=== PATIENT | female | born 1955 | race Caucasian/White ===

== ENCOUNTER 2016-03-23 16:56 | Emergency (ER) | payer OTHER ==
[~2016-03-23] VITALS: Ht 160 cm; Wt 67.0 kg
[~2016-03-23 16:56] MED LIST: ACET500T98 PO; ALBU18HF INHALATION; ALBU8.5H3 INH; AMO500 PO; AZIT250T94 PO; BEN50 PO; BENA40TA54 PO; BENZ100C70 PO; CAPT50TA3 PO; CYCL-319 PO; DOCU-144 PO; FAMO-18 PO; FLUT9.9S NASAL; HYDR-3498 PO; HYDR473S47 PO; IBUP200C PO; LORA-186 PO; METF500T4 PO; PRED20TA PO; UDROBDM PO
[2016-03-23 17:00] VITALS: Ht 160 cm; Wt 67.0 kg
[2016-03-23] MEDS ORDERED: ACET325T33 PO (17:46)
[2016-03-23] MEDS ORDERED: GUAI120S26 PO (17:50)
[2016-03-23] MEDS ORDERED: AMOX1TAB10 PO (17:50)
--- NOTE | 2016-03-23 17:59 | ERD ---
ER Documentation Chief Complaint Date/Time DATE: 03/23/16 TIME: 17:53 Chief Complaint FLU LIKE SYMPTOMS X 8 DAYS VOMITING, NASAL CONGESTION BODY ACHE HPI The patient is a 60-year-old female with 1 week of sore throat and dry cough, which is worse at night. She had 3 episodes of soft stool today and 4 episodes of soft stool yesterday. She reports vomiting a scant amount of liquid today 3 times and twice yesterday. This is associated with coughing a lot. She also reports headache and sinus pain for the last several days. She has some decreased appetite, but is getting plenty of fluids. She denies chest pain, difficulty breathing, shortness of breath, hemoptysis, hematemesis, body aches, lethargy, fever, chills, dysuria, flank pain, leg pain or swelling, recent surgery, or any other symptoms or concerns at this time. ROS All systems reviewed and are negative except as per history of present illness. Medications Home Meds Active Scripts Amoxicillin/Potassium Clav (Amox-Clav 875-125 mg Tablet) 875-125 mg Tab, 1 TAB PO BID for 7 Days, #14 TAB Prov:SHAHBAZ GREGG, ROTARY SLICING MACHINE OPERATOR 03/23/16 Vmypkzcdusl-H-Wnwgitocbb Hb* (Guaifenesin* DM Syrup) 120 Ml Syrup, 10 ML PO QHS Y for COUGH for 7 Days, ML Prov:SHAHBAZ GREGG, ROTARY SLICING MACHINE OPERATOR 03/23/16 Acetaminophen* (Tylenol*) 325 Mg Tablet, 2 TAB PO Q6 Y for PAIN AND OR ELEVATED TEMP, #20 TAB Prov:SHAHBAZ GREGG, ROTARY SLICING MACHINE OPERATOR 03/23/16 Benzonatate* (Tessalon Perle*) 100 Mg Capsule, 100 MG PO Q8H Y for COUGH, #20 CAP Prov:KEISHA AMADOR PA-C 01/26/16 Fluticasone Propionate (Flonase Allergy Relief) 9.9 Ml [place].susp, 1 SPRAY NASAL BID, #1 BOTTLE TO EACH NOSTRIL Prov:KEISHA AMADOR PA-C 01/26/16 Loratadine* (Claritin*) 10 Mg Tablet, 10 MG PO DAILY, #20 TAB Prov:KEISHA AMADOR PA-C 01/26/16 Ibuprofen* (Ibuprofen*) 200 Mg Capsule, 200 MG PO Q6, #30 CAP 0 Refills Prov:ERICKSONJACOB FREEMAN 04/12/15 Acetaminophen (Tylenol) 500 Mg Tab, 500 MG PO Q6, #30 TAB 0 Refills Prov:JACOB ALMENDAREZ LYDIA 04/12/15 Guaifenesin-Dextromethorphan* (Robitussin* DM) 100MG/10MG/5ML Syrup, 5 ML PO Q6H Y for COUGH, #240 ML 0 Refills Prov:ERICKSONJACOB FREEMAN 04/12/15 Amoxicillin* (Amoxicillin*) 500 Mg Cap, 500 MG PO TID, #21 CAP 0 Refills Prov:ERICKSONJACOB PA-C 04/12/15 Albuterol Sulfate* (Ventolin HFA*) 18 Gm Hfa.aer.ad, 2 PUFF INHALATION Q6H, #1 INHALER 0 Refills Prov:ERICKSONJACOB PA-C 04/12/15 Metformin* (Glucophage*) 500 Mg Tab, 500 MG PO BID, #60 TAB Prov:MAGEN CARMICHAEL MD 03/25/15 Benazepril Hcl* (Lotensin*) 40 Mg Tablet, 40 MG PO DAILY, #30 TAB Prov:MAGEN CARMICHAEL MD 03/25/15 Albuterol Sulfate* (Proair HFA*) 8.5 Gm Hfa.aer.ad, 2 PUFF INH Q4H Y for WHEEZING AND SOB, #1 INHALER Prov:MAGEN CARMICHAEL MD 03/25/15 Hydrocodone/Homatropine Mbr* (Hycodan* Liq) 5 Ml Syrup, 5 ML PO Q4H Y for COUGH , #4 OZ Prov:MAGEN CARMICHAEL MD 03/25/15 Azithromycin* (Zithromax*) 250 Mg Tablet, 250 MG PO .IZABEL DIRECTED, #6 TAB TAKE 500 MG (2 TABS) THE FIRST DAY THEN 250 MG (1 TAB) DAYS 2-5 Prov:MAGEN CARMICHAEL MD 03/25/15 Cyclobenzaprine Hcl* (Cyclobenzaprine Hcl*) 10 Mg Tablet, 10 MG PO TID, #15 TAB Prov:MALINA SINGH I. ROTARY SLICING MACHINE OPERATOR 03/02/15 Famotidine* (Pepcid*) 20 Mg Tablet, 20 MG PO BID for 4 Days, TAB Prov:MALINA SINGH I. ROTARY SLICING MACHINE OPERATOR 03/02/15 Diphenhydramine Hcl* (Benadryl*) 50 Mg Cap, 50 MG PO Q6 Y for ITCHING, #5 CAP Prov:MALINA SINGH I. ROTARY SLICING MACHINE OPERATOR 03/02/15 Prednisone* (Prednisone*) 20 Mg Tab, 40 MG PO DAILY for 4 Days, TAB Prov:SINGHMALINA BARTHOLOMEW I. ROTARY SLICING MACHINE OPERATOR 03/02/15 Docusate Sodium* (Colace*) 100 Mg Capsule, 100 MG PO TID, #30 CAP Prov:SAJI WOODSTHIA 02/24/15 Hydrocodone Bit-Acetaminophen* (Rocky Comfort*) 5-325 Mg Tab, 1 TAB PO Q6 Y for PAIN, # 20 TAB Prov:PEGGYSAJIBISMARK 02/24/15 Reported Medications Metformin* (Glucophage*) 500 Mg Tab, 500 MG PO BID, #30 TAB 02/24/15 Captopril* (Captopril*) 50 Mg Tablet, 50 MG PO QAM, #60 TAB 02/24/15 Allergies Allergies: Coded Allergies: No Known Allergy (Unverified , 01/08/15) PMhx/Soc History of Surgery: Yes (left ankle, right elbow) Anesthesia Reaction: No Hx Neurological Disorder: No Hx Respiratory Disorders: No Hx Cardiac Disorders: Yes (htn, hld) Hx Psychiatric Problems: No Hx Miscellaneous Medical Probl: Yes (dm type 2) Hx Alcohol Use: No Hx Substance Use: No Hx Tobacco Use: No Physical Exam Vitals Vital Signs Date Time Temp Pulse Resp B/P Pulse Ox O2 Delivery O2 Flow Rate FiO2 03/23/16 17:00 97.9 84 18 141/75 95 Physical Exam INITIAL VITAL SIGNS: Reviewed by me, afebrile, no tachycardia, oximetry 9 5% on room air, elevated blood pressure GENERAL: Alert. Well developed and well nourished. No acute distress. Nontoxic appearing. HEAD: Head is normocephalic. Atraumatic. Right ethmoid sinus tenderness to palpation. EYES: EOMI. PERRL. No scleral icterus. No conjunctival injection. ENT: External ears, nose, and mouth normal. Tympanic membranes without erythema , bulging, or effusion. Throat is clear and without erythema or exudates. Tonsils +1 and without erythema or exudates. Nasal passages patent and without rhinorrhea. Moist mucous membranes. Patient is easily able to swallow. NECK: Supple. Full range of motion. Trachea midline. One soft, movable, tender submandibular lymph node on the left side. No meningismus. RESPIRATORY: No tachypnea. Clear to auscultation bilaterally. No wheezing, rales , or rhonchi. CV: Regular rate and rhythm. No murmurs, rubs, or gallops ABDOMEN: Soft, non-distended, non-tender. No guarding. Bowel sounds normal in all quadrants. BACK: No CVA tenderness. Full ROM. EXTREMITIES: No obvious deformity. No clubbing or cyanosis. No edema. Sensation intact to light touch. Strength 5/5. SKIN: Warm and dry. No diaphoresis. No obvious rashes or lesions. NEUROLOGIC: Alert and oriented x 3. Appropriate. Face is symmetric. Speech is normal. Moves all extremities equally. Procedures/MDM Nursing Notes Reviewed Previous Medical Records requested via [employer]. EMERGENCY DEPARTMENT COURSE / MEDICAL DECISION MAKING: The patient comes to the ED secondary to sore throat and dry cough times one week, headache and sinus pain for the past few days, 3 episodes of soft stool today and 4 episodes of soft stool yesterday, and posttussive vomiting for 2 days. Differential diagnosis upon initial evaluation includes but is not limited to: viral syndrome, URI, bronchitis, pneumonia, strep pharyngitis, asthma exacerbation, COPD exacerbation, PE, ACS, pericarditis, pleural effusion, CHF exacerbation, pulmonary edema, sepsis. Given that the patient is well-appearing, nontoxic, afebrile, denies chest pain , denies dizziness, denies lightheadedness, denies abdominal pain, denies dysuria, denies headache, denies changes in mentation, denies shortness of breath, denies difficulty breathing, denies hemoptysis, denies hematemesis, denies true nausea vomiting, does not have watery diarrhea, does not have clinical signs of dehydration, is afebrile, without tachycardia, oximetry 95% on room air, with a benign physical exam, I have low suspicion at this time for strep pharyngitis, pneumonia, asthma, COPD, PE, ACS, pericarditis, pleural effusion, CHF, pulmonary edema, sepsis, or any other serious cause of cough, sore throat, sinus headache, and soft stools. Final impression: Sinusitis, right ethmoid URI The patient is a type II diabetic controlled on orals. She states that she has good diabetic maintenance. Her fingerstick blood glucose was 163 earlier today. She reports taking her blood sugar reading to 3 times per day. She also has hypothyroid, high cholesterol, and hypertension. She reports taking her medications as prescribed. Based on patient's history of present illness and physical examination the decision was made to discharge. There is no evidence of life threatening injuries or illnesses at this time. On re-examination, patient resting in no distress, stable vital signs, reports feeling safe for discharge with outpatient follow up with PMD in 1-2 days. Patient given return precautions. She verbalized understanding and agreed to return precautions. All of her questions and concerns were addressed prior to discharge. She agrees with the plan of care. And will follow-up with her primary care doctor within the next 1-2 days. She will return here immediately for any worsening symptoms, new symptoms, changing symptoms, or concerns. Instructed her to please only take cough medicine at night right before bed. She verbalized understanding and agreed. She was instructed to get plenty of fluids and plenty of rest and she agrees to do so. She is instructed to perform good hand hygiene encumber her cough. She agrees to do so. Patient's blood pressure was elevated but appears stable without evidence of hypertensive emergency, end organ damage, chest pain or shortness of breath. The patient was counseled about the risks of undertreated hypertension and urged to pursue outpatient monitoring and therapy in 2-3 days with their primary care physician. I discussed that the elevation in her blood pressure today could be just due to her being sick, or it could be too hypertension under treatment. She stated that she will discuss her elevated blood pressure finally today with her primary care doctor. She has an appointment this week on , 03/27/09. Prescriptions Tylenol Guaifenesin DM cough syrup Augmentin Departure Diagnosis: Primary Impression: Sinusitis chronic, ethmoidal Additional Impression: URI (upper respiratory infection) URI type: unspecified viral URI Qualified Code: J06.9 - Viral upper respiratory tract infection Condition: Stable Patient Instructions: Preventing Common Respiratory Infections, Sinusitis, Abx Tx Referrals: your doctor Additional Instructions: Llame al doctor MAANA y santos leroy DONELL PARA DENTRO DE 1-2 HORNER.Dgale a la secretaria que nosotros le instruimos hacer esta donell.Avise o llame si santiago condicin se empeora antes de la donell. Regresa aqui si peor o no mejor. SHAHBAZ GREGG, ROTARY SLICING MACHINE OPERATOR Mar 23, 2016 17:59
== END 2016-03-23 18:00 | disposition home or self-care (01) ==
LOC: FTE 16:56 → E/R 18:00
DX: J32.2 Chronic ethmoidal sinusitis (principal); J06.9 Acute upper respiratory infection, unspecified; I10 Essential (primary) hypertension; E11.9 Type 2 diabetes mellitus without complications; Z79.84 Long term (current) use of oral hypoglycemic drugs
CPT/HCPCS: 99283

== ENCOUNTER 2016-10-01 05:19 | Inpatient (IN) | payer MEDICARE, OTHER ==
[2016-09-30 12:37] VITALS: BMI 27.5
[~2016-10-01] VITALS: Ht 152.4 cm; Wt 69.6 kg
[2016-10-01] VITALS (25 sets, daily range): BP systolic 106–165; BP diastolic 48–83; PULSE 64–88; RESP 12–29; Ht 152.4 cm; Wt 69.6 kg
[2016-10-01] MEDS ORDERED: metroNIDAZOLE 500 MG/NS (PMX) 100 ML IVPB ONE (05:30)
[2016-10-01] MEDS ORDERED: CEFAZOLIN 2 GM/50 ML (PMX) 50 ML IVPB ONE (05:30)
[2016-10-01] MEDS ORDERED: D5-NS + KCL 20 MEQ 1,000 ML IV SCH (05:30)
[2016-10-01] MEDS ORDERED: EMPA10TA PO (06:37)
[2016-10-01] MEDS ORDERED: SITA1TBM7 PO (06:37)
[2016-10-01] MEDS ORDERED: ASPI-664 PO (06:37)
[2016-10-01] MEDS ORDERED: LEVO137T3 PO (06:37)
[2016-10-01] MEDS ORDERED: GLIP-95 PO (06:37)
[2016-10-01] MEDS ORDERED: AMLO-145 PO (06:37)
[2016-10-01] MEDS ORDERED: HYDROCODONE PO (06:37)
--- NOTE | 2016-10-01 06:53 | HPN ---
Date/Time of Note Date/Time of Note DATE: 10/01/16 TIME: 06:52 Interval H&P Admission Note Pt. seen H&P reviewed: No system changes MIRTA GONSALES MD Oct 01, 2016 06:52
[2016-10-01] MEDS ORDERED: metroNIDAZOLE 500 MG/100 ML NS IVPB ONE (07:00)
[2016-10-01] MEDS ORDERED: ACETAMINOPHEN 1000 MG/100 ML IVPB ONE (07:00)
[2016-10-01] MEDS ORDERED: CEFAZOLIN 1 GM INJ ONE (07:00)
[2016-10-01] MEDS ORDERED: METHYLENE BLUE 1% 10 ML INJ ONE (07:01)
[2016-10-01] MEDS ORDERED: VASOPRESSIN 20 UNITS INJ ONE (07:01)
[2016-10-01] MEDS ORDERED: THROMBIN 5000 UNIT VIAL ONE (07:01)
[2016-10-01] MEDS ORDERED: PROPOFOL 100 ML ONE (07:25)
[2016-10-01] MEDS ORDERED: morphine SULFATE/PF (10 MG/10 ML) INJ ONE (07:25)
[2016-10-01] MEDS ORDERED: ROCURONIUM 50 MG INJ ONE (07:25)
[2016-10-01] MEDS ORDERED: SUCCINYLCHOLINE CHLORIDE 100 MG/5 ML SYG IV ONE (07:25)
[2016-10-01] MEDS ORDERED: FENTAnyl 50 MCG/ML VIAL ONE (07:26)
[2016-10-01] MEDS ORDERED: MIDAZOLAM 1 MG/ML 2 ML INJ ONE (07:26)
[2016-10-01] MEDS ORDERED: INSULIN ASPART [NOVOLOG] 3 ML PEN SC ONE (07:30)
--- NOTE | 2016-10-01 08:15 | HP ---
Date/Time of Note Date/Time of Note DATE: 10/01/16 TIME: 08:14 Assessment/Plan VTE Prophylaxis VTE Prophylaxis Intervention: SCD's Lines/Catheters IV Catheter Type (from Nrsg): Peripheral IV HPI/ROS Admit Date/Time Admit Date/Time Oct 01, 2016 at 05:19 Hx of Present Illness Alphonso Willoughby M.D. [facility] History and Physical Examination Evonne Yoon Date:Sep 24, 2016 :1955 Age: 61 Physicians: Supervisor Billposting Chef Instructor Oncologist Referring MD: Gagandeep Rivero History of the Present Illness: A 61 year old female with a gradually increasing pelvic mass. The mass is complex but predominantly solid 6 cm left side. Associated with pain 3 years but getting worse. Medical history/ROS: all other systems unremarkable. Surgical history: no significant abdominal procedures. Flu yes, 03-24-16, Pneumococcal yes, Colonoscopy: never G 4 P 3 Ab 1 Medications: 08/11/16 aspirin 81 mg tablet,delayed release 1 tablet by mouth DAILY 08/11/16 benazepril 40 mg tablet 1 tablet by mouth DAILY 08/27/16 Flagyl 250 mg tablet 1 tablet by mouth as directed 1 PO QD X 2 DAYS CARL 08/11/16 glipizide ER 5 mg tablet, extended release 24 hr 1 tablet by mouth BID 08/27/16 Golytely 236 gram-22.74 gram-6.74 gram-5.86 gram oral solution 1 mL by mouth as directed BEGIN BOWEL PREP AT 10AM 08/11/16 Janumet 50 mg-500 mg tablet 1 tablet by mouth BID 08/27/16 Levaquin 250 mg tablet 1 tablet by mouth as directed 1 PO QD X 2 DAYS CARL 08/11/16 levothyroxine 125 mcg tablet 1 tablet by mouth DAILY Allergies: No active allergies recorded Family Hx: non-contributary Social HX: non-contributary ROS: as above Physical Examination Vitals (09/24/2016): Weight 156, Height 60.25, BP 110/60, BMI 30.5. General: Alert. HEENT: Pupils are equal, round, reactive to light and accommodation. Neck: Supple with no masses of lymphadenopathy. Breast: Deferred due to recent examination and responsibility of primary care physician. Chest: Clear to auscultation Heart: Normal rhythm with no murmur. Abdomen: Non tender, no ascites nor organomeglay. Pelvic exam: no masses or cul-de-sac nodularity noted Rectal: confirmatory with pelvic exam. Neurological: Grossly intact Assessment: Pelvic mass Plan: TLH/BSO, possible LSH/BSO, possible staging, possible open. All risks and benefits of this procedure have been discussed in detail with the patient, as well as alternative treatment strategies and their implications. The patient is aware that there is some possibility of a blood transfusion and its associated risks and benefits. She wishes to proceed and gives her informed consent. Alphonso Willoughby M.D. PMH/Family/Social Social History Smoking Status: Never smoker Exam/Review of Systems Vital Signs Vitals Vital Signs Date Time Temp Pulse Resp B/P Pulse Ox O2 Delivery O2 Flow Rate FiO2 10/01/16 06:24 97.0 70 18 165/83 96 Room Air Medications Medications Current Medications Potassium Chloride/Dextrose/ Sod Cl (D5-NS + KCl 20 Meq) 1,000 ml @ 100 mls/hr Q10H IV ; Start 10/01/16 at 05:30; Stop 10/01/16 at 15:29 ALPHONSO WILLOUGHBY MD Oct 01, 2016 08:15
[2016-10-01] MEDS ORDERED: EPHEDrine SULFATE 50 MG/5 ML SYG IV PRN (10:00)
[2016-10-01] MEDS ORDERED: NALBUPHINE HCL (10 MG/1 ML) INJ IV PRN (10:00)
[2016-10-01] MEDS ORDERED: FENTAnyl 50 MCG/ML VIAL IV PRN ×3 (10:00)
[2016-10-01] MEDS ORDERED: LABETALOL HCL 20MG INJ IV PRN (10:00)
[2016-10-01] MEDS ORDERED: ONDANSETRON 4 MG INJ IV PRN ×2 (10:00)
[2016-10-01] MEDS ORDERED: DIPHENHYDRAMINE 50 MG INJ IV PRN ×2 (10:00)
[2016-10-01] MEDS ORDERED: hydrALAzine 20 MG INJ IV PRN (10:00)
[2016-10-01] MEDS ORDERED: ALBUMIN HUMAN 5% 250 ML IV PRN (10:00)
[2016-10-01] MEDS ORDERED: morphine (1 MG/ML) 10ML SYRINGE IV PRN ×3 (10:00)
[2016-10-01] MEDS ORDERED: MEPERIDINE 25 MG INJ IV PRN (10:00)
[2016-10-01] MEDS ORDERED: NALOXONE (0.4 MG/ML) INJ IV PRN (10:00)
[2016-10-01] MEDS ORDERED: KETOROLAC 30 MG INJ ONE (10:15)
[2016-10-01] MEDS ORDERED: NEOSTIGMINE 3 MG/3 ML SYRINGE ONE (10:15)
[2016-10-01] MEDS ORDERED: ONDANSETRON 4 MG INJ ONE (10:15)
[2016-10-01] MEDS ORDERED: GLYCOPYRROLATE 0.4 MG INJ ONE (10:15)
[2016-10-01] MEDS ORDERED: METOCLOPRAMIDE 10 MG INJ ONE (10:15)
[2016-10-01] MEDS ORDERED: DEXAMETHASONE 4 MG/ML 1 ML INJ ONE (10:15)
[2016-10-01] MEDS ORDERED: hydrALAzine 20 MG INJ ONE (10:20)
--- NOTE | 2016-10-01 10:48 | OPR ---
Date/Time of Note Date/Time of Note DATE: 10/01/16 TIME: 10:47 Operative Report Free Text/Dictation OPERATIVE REPORT [facility] Name: [facility]an [facility] Date: 10/01/16 Preoperative Diagnosis: 1- Left adnexal mass with pelvic pain and CA-125 of 12 2- Pelvic pain Postoperative Diagnosis: 1- Benign retroperitoneal mass; pathology pending 2- Ureteral stricture Procedures: 1- Bilateral salpingoophorectomy 2- Left ureteral dissection with repositioning 3- Excision of retroperitoneal mass; pathology pending Surgeon: Dr. Gonsales Temperature Logging Operator: Dr. Garcia Anesthesia: General Indications for Procedure The patient was a 61 year old with a left solid adnexal masses and a CA-125 well as uterine enlargement with abnormal bleeding and cervical stenosis. Hence a laparoscopy was undertaken with the intention of a BSO and possible total laparoscopic hysterectomy and bilateral salpingoophorectomy with staging if needed after considering all options with risks and benefits. Findings and Summary The patient was laparoscoped and noted to have a solid retroperitoneal mass on the left adjacent to the adnexa with a normal adnexa contralateralally and therefore required a Name: [facility] ureteral dissection and repositioning on the left due to the mass and adnexa densely adherent to the sidewall. The bilateral salpingoophorectomy was then completed uneventfully with the left ureteral dissection and repositioning, facilitating removal of the retroperitoneal mass benign on frozen section. Procedure: After being prepped and draped in the usual manner an EEA-sizer and pneumo- occluder were inserted vaginally to define anatomy and assure a pneumoperitoneum. A 5-millimeter trocar was then placed cephlad to the umbilicus without incident. Subsequently, we insufflated to 15 mm Hg and placed two 5-millimeter trocars laterally and a 12-millimeter trocar suprapubically. At this time any pelvic adhesions were lysed with sharp dissection. Subsequently we explored and noted a solid mass retroperitoneally on the left adjacent to the bladder and adnexia. Initially the right round ligament was cauterized and transected with the Gyrus biopolar Cutting Forceps and the retroperitoneal spaced opened parallel to the IP-ligament and laterally with the same devise. The ureter were identified. The ureter was bluntly mobilized. Hence, space was developed in the broad ligament and the IP ligament was transected with a Thunderbeat. Subsequently, the triple-pedicle was coagulated, desiccated and transected with a Thunderbeat and the specimen removed. At this time the sigmoid was dissected from the sidewall with sharp dissection. The left round ligament was transected with the Thunderbeat and Omni and the retroperitoneal spaced opened parallel to the IP ligament and laterally with the same devise. The ureter was identified and because of proximity to the to the the retroperitoneal mass and adnexa densely adherent to the sidewall required a specific dissection and repositioning. The ureter was bluntly dissected away from the broad ligament bilaterally with an Omni, and carefully repositioned lateral to the broad ligament and suggestion of scar tissue with adjacent adnexia. Subsequently, space was developed in the broad ligament and the IP ligament was transected with a Thunderbeat and Omni. Subsequently the triple- Name: [facility] pedicle was coagulated, desiccated and transected with a Thunderbeat and the specimen removed. Subsequently the aforementioned mass was clasped and removed from the perivessicle fat with the Thunderbeat and Omni as well as Gyrus bipolar cutting forceps and the integrity of the bladder was confirmed with Methylene blue and saline. The 12-millimeter trocar site was minimally extended to 3-4 cm midline to a minilaparotomy with sharp dissection and an electrocautery and the aforementioned mass was removed with a frozen section benign. The incision was partly closed with interrupted 0- Vicryl suture, after which the 12-millimeter trocar was reinserted. After irrigating and assuring hemostasis the 12 millimeter trocar was removed and the fascia was closed with 0 -vicryl using an endo-close devise. The gas was removed and the skin of all sites then closed with 6-0 plain gut suture or Monocryl suture. The EBL was 75 cc and the patient tolerated the procedure well and left the OR in good condition. Mirta Gonsales M.D. MIRTA GONSALES MD Oct 01, 2016 10:48
[2016-10-01] MEDS ORDERED: PHENYLephrine (100 MCG/ML) 5ML SYG ONE (10:50)
[2016-10-01] MEDS ORDERED: POTASSIUM CHLORIDE 20 MEQ in LACTATED RINGER'S 1,000 ML IV SCH (11:00)
[2016-10-01 11:24] LABS: BASOPHILS % 0.3 % (0.0-2.0); EOSINOPHILS # 0.1 10^3/ul (0.0-0.5); EOSINOPHILS % 1.6 % (0.0-7.0); HEMATOCRIT 37.9 % (37.0-47.0); HEMOGLOBIN 12.5 g/dl (12.0-16.0); LYMPHOCYTES # 3.9 10^3/ul (0.8-2.9); LYMPHOCYTES % 51.7 % (15.0-51.0); MEAN CORPUSCULAR HEMOGLOBIN 30.3 pg (29.0-33.0); MEAN PLATELET VOLUME 12.5 fl (7.4-10.4); MONOCYTE # 0.4 10^3/ul (0.3-0.9); MONOCYTES % 5.4 % (0.0-11.0); NEUTROPHILS % 40.7 % (39.0-77.0); PLATELET COUNT 105 10^3/UL (140-415); RED BLOOD COUNT 4.12 10^6/ul (4.20-5.40); RED CELL DISTRIBUTION WIDTH 13.9 % (11.5-14.5); WHITE BLOOD COUNT 7.6 10^3/ul (4.8-10.8)
[2016-10-01 11:52] LABS: CALCIUM 8.7 mg/dl (8.4-10.2); CREATININE 0.6 mg/dl (0.44-1.00); POTASSIUM 3.2 mmol/L (3.5-5.1)
[2016-10-01] MEDS: morphine 2 MG INJ IV PRN ×4 (12:09→23:52)
[2016-10-01] MEDS ORDERED: GLUCAGON 1 MG INJ IM PRN (12:30)
[2016-10-01] MEDS ORDERED: GLUCOSE GEL 15 GRAM TUBE BUCCAL PRN (12:30)
[2016-10-01] MEDS ORDERED: GLUCOSE GEL 15 GRAM TUBE PO PRN ×2 (12:30)
[2016-10-01] MEDS ORDERED: DEXTROSE 50% 50 ML SYRINGE IV PRN ×2 (12:30)
--- NOTE | 2016-10-01 12:52 | HP ---
DATE OF ADMISSION: 10/01/2016 HISTORY OF PRESENT ILLNESS: The patient is a 61-year-old female with history of diabetes, hypertension, and hypothyroidism. Patient was noted to have left solid adnexal mass. Patient also had a CEA of 12. Patient is complaining of abdominal tenderness. She also had uterine enlargement with abnormal bleeding. Patient was evaluated by Dr. Willoughby in surgical consultation and patient was brought to the hospital and underwent a laparoscopy with excision of retroperitoneal mass, left ureteral dissection was repositional, and bilateral salpingo-oophorectomy. Postoperatively, patient experienced significant pain and patient was admitted for further evaluation and management. PAST MEDICAL HISTORY: Positive for diabetes, hypothyroidism, hypertension. FAMILY HISTORY: Noncontributory. PAST SURGICAL HISTORY: Status post surgery on patient's left ankle due to trauma, right elbow due to fall many years ago. SOCIAL HISTORY: Patient lives at home. Patient denies any tobacco, denies any illicit drug use, denies any alcohol use. ALLERGIES: NO KNOWN ALLERGIES. MEDICATIONS: Include amlodipine, aspirin, Jardiance, glipizide, levothyroxine, Janumet. REVIEW OF SYSTEMS: A 12-point review of systems is negative, unless what is mentioned in HPI. PHYSICAL EXAMINATION: GENERAL: Well-developed, well-nourished female. Currently is awake, alert, in no acute distress. VITAL SIGNS: Temperature is 98.0, pulse 66, blood pressure 106/49, respiratory rate 17, oxygen saturation 98 percent on 2 L nasal cannula. HEENT: Head is atraumatic, normocephalic. Pupils equal, round and reactive to light and accommodation. Oral mucosa is pink and moist. NECK: Supple. No cervical lymphadenopathy. No thyromegaly. CHEST: Lungs clear bilaterally. There are no rhonchi, wheezes, rales noted. CARDIAC: Normal S1, S2. No murmurs, gallops, clicks are noted. ABDOMEN: Soft, status post surgery. EXTREMITIES: No edema, clubbing, cyanosis. GENITOURINARY: Patient has a Mejia catheter with clear yellow urine. NEUROLOGIC: Patient is awake, alert and oriented x4. Moves all extremities. LABORATORY DATA: On admission, CBC: White blood cells 7.6, hemoglobin is 12.5, hematocrit 37.9, platelets 105. Chemistry: Sodium is 138, potassium 3.2, chloride 103, carbon dioxide 27, anion gap 11, BUN 11, creatinine 0.6, glucose 129, calcium 8.7. ASSESSMENT AND PLAN: 1. Left adnexal pelvic mass, status post excision, left ureteral dissection, bilateral salpingo-oophorectomy. Continue to follow up surgical recommendation. Continue Zofran p.r.n. for nausea and morphine p.r.n. for pain. Patient is continued on antibiotics, cefazolin and metronidazole. 2. Hypertension. Continue to monitor blood pressure, resume patient's home medication. Tomrrow continue hydralazine p.r.n. for systolic blood pressure above 170. 3. Diabetes mellitus type 2. Continue Janumet and glipizide. Monitor blood sugar q.a.c. and at bedtime with Novalog mild sliding scale coverage. 4. Hypothyroidism. Continue Synthroid. 5. We will continue sequential compression device for deep venous thrombosis prophylaxis and further recommendations based on clinical course. Plan of care discussed with Dr. Tabor. Dictated By: Marichuy Mallory NP /jocelyne/ni /Document#: [id number]
[2016-10-01] MEDS: POTASSIUM CHLORIDE 20 MEQ in LACTATED RINGER'S 1,000 ML IV SCH (16:02)
[2016-10-01] MEDS: LINAGLIPTIN 5 MG TABLET PO SCH (18:14)
[2016-10-01] MEDS: metFORMIN (XR) 500 MG TAB PO SCH (18:14)
[2016-10-01] MEDS: CEFAZOLIN 1 GM/50 ML (PMX) 50 ML IVPB SCH (18:14)
[2016-10-01] MEDS: INSULIN ASPART [NOVOLOG] 3 ML PEN SC SCH ×2 (18:15→20:53)
[2016-10-01] MEDS: metroNIDAZOLE 500 MG/NS (PMX) 100 ML IVPB SCH ×2 (18:57→23:59)
[2016-10-01] MEDS: HYDROCODONE/APAP (5/325) TAB PO PRN (19:32)
[2016-10-01] MEDS ORDERED: glipiZIDE 10 MG TAB PO SCH (21:00)
[2016-10-02 00:58] VITALS: BP 139/67; RESP 20
[2016-10-02 01:15] VITALS: BP 126/58; PULSE 70
[2016-10-02] MEDS: CEFAZOLIN 1 GM/50 ML (PMX) 50 ML IVPB SCH ×3 (01:59→17:11)
[2016-10-02] MEDS: ACCU-CHEK XX SCH (02:00)
[2016-10-02] MEDS ORDERED: ACCU-CHEK XX SCH (02:00)
[2016-10-02] MEDS: morphine 2 MG INJ IV PRN ×5 (03:38→15:43)
[2016-10-02 04:00] VITALS: BP 124/55; PULSE 69; RESP 17
[2016-10-02] MEDS: POTASSIUM CHLORIDE 20 MEQ in LACTATED RINGER'S 1,000 ML IV SCH ×2 (04:42→14:51)
[2016-10-02] MEDS: HYDROCODONE/APAP (5/325) TAB PO PRN ×2 (04:42→12:19)
[2016-10-02 05:23] LABS: BASOPHILS % 0.1 % (0.0-2.0); HEMATOCRIT 40.4 % (37.0-47.0); HEMOGLOBIN 13.4 g/dl (12.0-16.0); LYMPHOCYTES # 1.3 10^3/ul (0.8-2.9); LYMPHOCYTES % 10.8 % (15.0-51.0); MEAN CORPUSCULAR HEMOGLOBIN 30.8 pg (29.0-33.0); MEAN CORPUSCULAR HGB CONC 33.2 g/dl (32.0-37.0); MEAN CORPUSCULAR VOLUME 92.9 fl (82.0-101.0); MEAN PLATELET VOLUME 12.5 fl (7.4-10.4); MONOCYTE # 0.8 10^3/ul (0.3-0.9); MONOCYTES % 6.3 % (0.0-11.0); NEUTROPHILS % 82.2 % (39.0-77.0); PLATELET COUNT 115 10^3/UL (140-415); RED BLOOD COUNT 4.35 10^6/ul (4.20-5.40); RED CELL DISTRIBUTION WIDTH 13.6 % (11.5-14.5); WHITE BLOOD COUNT 12.2 10^3/ul (4.8-10.8)
[2016-10-02 05:32] LABS: INR 0.95; PROTIME 12.7 Sec (12.2-14.2)
[2016-10-02 05:34] LABS: ALBUMIN 3.7 g/dl (3.3-4.9); ALBUMIN/GLOBULIN RATIO 1.32; BILIRUBIN,INDIRECT 0.5 mg/dl (0-1.1); BILIRUBIN,TOTAL 0.5 mg/dl (0.2-1.3); CALCIUM 9.1 mg/dl (8.4-10.2); CREATININE 0.61 mg/dl (0.44-1.00); POTASSIUM 4.3 mmol/L (3.5-5.1); TOTAL PROTEIN 6.5 g/dl (6.1-8.1)
[2016-10-02 07:50] VITALS: BP 141/66; RESP 18
[2016-10-02] MEDS: INSULIN ASPART [NOVOLOG] 3 ML PEN SC SCH ×4 (09:15→20:42)
[2016-10-02] MEDS: LEVOTHYROXINE 137 MCG TAB PO SCH (09:25)
[2016-10-02] MEDS: EMPAGLIFLOZIN 10 MG TABLET PO SCH (09:25)
[2016-10-02] MEDS: AMLODIPINE 5 MG TAB PO SCH (09:25)
--- NOTE | 2016-10-02 13:39 | PN ---
Date/Time of Note Date/Time of Note DATE: 10/02/16 TIME: 13:34 Assessment/Plan VTE Prophylaxis VTE Prophylaxis Intervention: SCD's Lines/Catheters IV Catheter Type (from Nrsg): Peripheral IV Urinary Cath still in place: No Assessment/Plan Assessment/Plan 1. Left adnexal pelvic mass, status post excision, left ureteral dissection, bilateral salpingo-oophorectomy. - per sx - Continue Zofran p.r.n. for nausea and morphine p.r.n. for pain. - cefazolin and metronidazole. 2. Hypertension. - hydralazine p.r.n. for systolic blood pressure above 170. 3. Diabetes mellitus type 2. - Continue Janumet and glipizide. - Monitor blood sugar q.a.c. and at bedtime with Novalog mild sliding scale coverage. 4. Hypothyroidism. Continue Synthroid. 5. Sequential compression device for deep venous thrombosis prophylaxis Further recommendations based on clinical course. Plan of care discussed with Dr. Tabor. Subjective 24 Hr Interval Summary Respiratory: no complaints Cardiovascular: no complaints Gastrointestinal: no complaints Musculoskeletal: no complaints Skin: no complaints Neurologic: no complaints Exam/Review of Systems Vital Signs Vitals Vital Signs Date Time Temp Pulse Resp B/P Pulse Ox O2 Delivery O2 Flow Rate FiO2 10/02/16 07:50 98.1 63 18 141/66 94 10/02/16 04:00 Room Air 10/02/16 01:27 2.0 Intake and Output 10/01/16 10/01/16 10/02/16 15:00 23:00 07:00 Intake Total 2000 ml 1730 ml 1450 ml Output Total 1210 ml 1200 ml 2500 ml Balance 790 ml 530 ml -1050 ml Exam Constitutional: alert, oriented, well developed Respiratory: clear to auscultation, normal air movement Cardiovascular: nl pulses, regular rate and rhythm Gastrointestinal: non-tender, soft Genitourinary - Female: other (PAIN) Musculoskeletal: nl extremities to inspection Results Result Diagram: 10/02/16 0428 10/02/16 0428 Results 24 hrs Laboratory Tests Test 10/01/16 18:06 10/01/16 20:50 10/02/16 02:00 10/02/16 04:28 Bedside Glucose 211 225 H 126 White Blood Count 12.2 #H Red Blood Count 4.35 Hemoglobin 13.4 Hematocrit 40.4 Mean Corpuscular Volume 92.9 Mean Corpuscular Hemoglobin 30.8 Mean Corpuscular Hemoglobin Concent 33.2 Red Cell Distribution Width 13.6 Platelet Count 115 L Mean Platelet Volume 12.5 H Neutrophils % 82.2 H Lymphocytes % 10.8 L Monocytes % 6.3 Eosinophils % 0.0 Basophils % 0.1 Nucleated Red Blood Cells % 0.0 Neutrophils # (Manual) 10.0 H Lymphocytes # 1.3 Monocytes # 0.8 Eosinophils # 0.0 Basophils # 0.0 Nucleated Red Blood Cells # 0.0 Prothrombin Time 12.7 Prothrombin Time Ratio 1.0 INR International Normalized Ratio 0.95 Sodium Level 136 Potassium Level 4.3 Chloride Level 100 Carbon Dioxide Level 29 Anion Gap 11 Blood Urea Nitrogen 9 Creatinine 0.61 Glucose Level 120 Calcium Level 9.1 Total Bilirubin 0.5 Direct Bilirubin 0.00 Indirect Bilirubin 0.5 Aspartate Amino Transf (AST/SGOT) 24 Alanine Aminotransferase (ALT/SGPT) 38 Alkaline Phosphatase 85 Total Protein 6.5 Albumin 3.7 Globulin 2.80 Albumin/Globulin Ratio 1.32 Test 10/02/16 08:52 10/02/16 12:30 Bedside Glucose 141 130 Medications Medications Current Medications Cefazolin Sodium (Ancef 1 Gm/50 ml (Pmx)) 50 ml @ 100 mls/hr Q8H IVPB Last administered on 10/02/16 09:24; Admin Dose 100 MLS/HR; Start 10/01/16 at 09:00 Morphine Sulfate (morphine) 2 mg Q2H PRN IV PAIN LEVEL 6-10 Last administered on 10/02/16 11:09; Admin Dose 2 MG; Start 10/01/16 at 08:30 Acetaminophen/ Hydrocodone Bitart ([place] (5/325)) 1 tab Q6H PRN PO PAIN LEVEL 6 -10 Last administered on 10/02/16 12:19; Admin Dose 1 TAB; Start 10/01/16 at 08 :30 Diphenhydramine HCl (Benadryl) 25 mg Q4H PRN IV PRURITUS; Start 10/01/16 at 10: 00 Nalbuphine HCl (Nubain) 10 mg Q4H PRN IV PRURITUS; Start 10/01/16 at 10:00 Ondansetron HCl (Zofran Inj) 4 mg Q6H PRN IV NAUSEA AND/OR VOMITING; Start at 10:00 Naloxone HCl (Narcan) 0.2 mg Q2M PRN IV FOR RESP RATE 8 OR LESS; Start at 10:00 Amlodipine Besylate (Norvasc) 5 mg DAILY PO Last administered on 10/02/16 09: 25; Admin Dose 5 MG; Start 10/02/16 at 09:00 Empaglifozin (Jardiance) 10 mg AM PO Last administered on 10/02/16 09:25; Admin Dose 10 MG; Start 10/02/16 at 09:00 Levothyroxine Sodium (Synthroid) 137 mcg DAILY@06 PO Last administered on 09:25; Admin Dose 137 MCG; Start 10/02/16 at 06:00 Diagnostic Test (Pha) (Accu-Chek) 1 ea 02 XX Last administered on 10/02/16 02: 00; Admin Dose 1 EA; Start 10/02/16 at 02:00 Hydralazine HCl (Apresoline) 10 mg Q6H PRN IV SBP>170; Start 10/01/16 at 12:30 Miscellaneous Information 1 ea NOTE XX ; Start 10/01/16 at 12:30 Glucose (Glutose) 15 gm Q15M PRN PO DECREASED GLUCOSE; Start 10/01/16 at 12:30 Glucose (Glutose) 22.5 gm Q15M PRN PO DECREASED GLUCOSE; Start 10/01/16 at 12: 30 Dextrose (D50w Syringe) 25 ml Q15M PRN IV DECREASED GLUCOSE; Start 10/01/16 at 12:30 Dextrose (D50w Syringe) 50 ml Q15M PRN IV DECREASED GLUCOSE; Start 10/01/16 at 12:30 Glucagon (Glucagen) 1 mg Q15M PRN IM DECREASED GLUCOSE; Start 10/01/16 at 12:30 Glucose 15 gm 15 gm Q15M PRN BUCCAL DECREASED GLUCOSE; Start 10/01/16 at 12:30 Potassium Chloride/Lactated Ringer's (KCl/Lr) 1,010 ml @ 60 mls/hr [id number] IV Last administered on 10/02/16 04:42; Admin Dose 100 MLS/HR; Start 10/01/16 at 15:00 NORMAN BARCENAS Oct 02, 2016 13:39
--- NOTE | 2016-10-02 13:44 | PN ---
Date/Time of Note Date/Time of Note DATE: 10/02/16 TIME: 13:42 Assessment/Plan VTE Prophylaxis VTE Prophylaxis Intervention: SCD's Lines/Catheters IV Catheter Type (from Nrs): Peripheral IV Urinary Cath still in place: No Assessment/Plan Chief Complaint/Hosp Course pelvic mass Problems: Assessment/Plan A- doing well P- OOB more and possible d/c a.m. Subjective 24 Hr Interval Summary Free Text/Dictation indicates some pain but + flatus. Exam/Review of Systems Vital Signs Vitals Vital Signs Date Time Temp Pulse Resp B/P Pulse Ox O2 Delivery O2 Flow Rate FiO2 10/02/16 07:50 98.1 63 18 141/66 94 10/02/16 04:00 Room Air 10/02/16 01:27 2.0 Intake and Output 10/01/16 10/01/16 10/02/16 15:00 23:00 07:00 Intake Total 2000 ml 1730 ml 1450 ml Output Total 1210 ml 1200 ml 2500 ml Balance 790 ml 530 ml -1050 ml Exam bozena- clear CVS- nsr Abd- soft NT clean Ext- nt no edema Results Result Diagram: 10/02/16 0428 10/02/16 0428 Results 24 hrs Laboratory Tests Test 10/01/16 18:06 10/01/16 20:50 10/02/16 02:00 10/02/16 04:28 Bedside Glucose 211 225 H 126 White Blood Count 12.2 #H Red Blood Count 4.35 Hemoglobin 13.4 Hematocrit 40.4 Mean Corpuscular Volume 92.9 Mean Corpuscular Hemoglobin 30.8 Mean Corpuscular Hemoglobin Concent 33.2 Red Cell Distribution Width 13.6 Platelet Count 115 L Mean Platelet Volume 12.5 H Neutrophils % 82.2 H Lymphocytes % 10.8 L Monocytes % 6.3 Eosinophils % 0.0 Basophils % 0.1 Nucleated Red Blood Cells % 0.0 Neutrophils # (Manual) 10.0 H Lymphocytes # 1.3 Monocytes # 0.8 Eosinophils # 0.0 Basophils # 0.0 Nucleated Red Blood Cells # 0.0 Prothrombin Time 12.7 Prothrombin Time Ratio 1.0 INR International Normalized Ratio 0.95 Sodium Level 136 Potassium Level 4.3 Chloride Level 100 Carbon Dioxide Level 29 Anion Gap 11 Blood Urea Nitrogen 9 Creatinine 0.61 Glucose Level 120 Calcium Level 9.1 Total Bilirubin 0.5 Direct Bilirubin 0.00 Indirect Bilirubin 0.5 Aspartate Amino Transf (AST/SGOT) 24 Alanine Aminotransferase (ALT/SGPT) 38 Alkaline Phosphatase 85 Total Protein 6.5 Albumin 3.7 Globulin 2.80 Albumin/Globulin Ratio 1.32 Test 10/02/16 08:52 10/02/16 12:30 Bedside Glucose 141 130 Medications Medications Current Medications Cefazolin Sodium (Ancef 1 Gm/50 ml (Pmx)) 50 ml @ 100 mls/hr Q8H IVPB Last administered on 10/02/16 09:24; Admin Dose 100 MLS/HR; Start 10/01/16 at 09:00 Morphine Sulfate (morphine) 2 mg Q2H PRN IV PAIN LEVEL 6-10 Last administered on 10/02/16 11:09; Admin Dose 2 MG; Start 10/01/16 at 08:30 Acetaminophen/ Hydrocodone Bitart ([place] (5/325)) 1 tab Q6H PRN PO PAIN LEVEL 6 -10 Last administered on 10/02/16 12:19; Admin Dose 1 TAB; Start 10/01/16 at 08 :30 Diphenhydramine HCl (Benadryl) 25 mg Q4H PRN IV PRURITUS; Start 10/01/16 at 10: 00 Nalbuphine HCl (Nubain) 10 mg Q4H PRN IV PRURITUS; Start 10/01/16 at 10:00 Ondansetron HCl (Zofran Inj) 4 mg Q6H PRN IV NAUSEA AND/OR VOMITING; Start at 10:00 Naloxone HCl (Narcan) 0.2 mg Q2M PRN IV FOR RESP RATE 8 OR LESS; Start at 10:00 Amlodipine Besylate (Norvasc) 5 mg DAILY PO Last administered on 10/02/16 09: 25; Admin Dose 5 MG; Start 10/02/16 at 09:00 Empaglifozin (Jardiance) 10 mg AM PO Last administered on 10/02/16 09:25; Admin Dose 10 MG; Start 10/02/16 at 09:00 Levothyroxine Sodium (Synthroid) 137 mcg DAILY@06 PO Last administered on 09:25; Admin Dose 137 MCG; Start 10/02/16 at 06:00 Diagnostic Test (Pha) (Accu-Chek) 1 ea 02 XX Last administered on 10/02/16 02: 00; Admin Dose 1 EA; Start 10/02/16 at 02:00 Hydralazine HCl (Apresoline) 10 mg Q6H PRN IV SBP>170; Start 10/01/16 at 12:30 Miscellaneous Information 1 ea NOTE XX ; Start 10/01/16 at 12:30 Glucose (Glutose) 15 gm Q15M PRN PO DECREASED GLUCOSE; Start 10/01/16 at 12:30 Glucose (Glutose) 22.5 gm Q15M PRN PO DECREASED GLUCOSE; Start 10/01/16 at 12: 30 Dextrose (D50w Syringe) 25 ml Q15M PRN IV DECREASED GLUCOSE; Start 10/01/16 at 12:30 Dextrose (D50w Syringe) 50 ml Q15M PRN IV DECREASED GLUCOSE; Start 10/01/16 at 12:30 Glucagon (Glucagen) 1 mg Q15M PRN IM DECREASED GLUCOSE; Start 10/01/16 at 12:30 Glucose 15 gm 15 gm Q15M PRN BUCCAL DECREASED GLUCOSE; Start 10/01/16 at 12:30 Potassium Chloride/Lactated Ringer's (KCl/Lr) 1,010 ml @ 60 mls/hr [id number] IV Last administered on 10/02/16 04:42; Admin Dose 100 MLS/HR; Start 10/01/16 at 15:00 Acetaminophen/ Hydrocodone Bitart ([place] (7.5-325)) 1 tab Q6H PRN PO PAIN LEVEL 8-10; Start 10/02/16 at 13:30; Status UNV MIRTA GONSALES MD Oct 02, 2016 13:44
[2016-10-02 14:35] VITALS: BP 161/72; RESP 18
[2016-10-02] MEDS: metFORMIN (XR) 500 MG TAB PO SCH (17:55)
[2016-10-02] MEDS: LINAGLIPTIN 5 MG TABLET PO SCH (17:55)
[2016-10-02] MEDS: HYDROCODONE/APAP (7.5/325) TAB PO PRN (18:05)
[2016-10-02] MEDS: morphine 4 MG/ML VIAL IV PRN (19:18)
[2016-10-02 20:44] VITALS: BP 173/75; PULSE 62; RESP 18
[2016-10-02] MEDS: hydrALAzine 20 MG INJ IV PRN (20:46)
[2016-10-02] MEDS: ZOLPIDEM 5 MG TAB PO SCH (21:48)
[2016-10-02] MEDS: AL HYDROX/MG HYDROX/SIMETH 30 ML CUP PO PRN (22:04)
[2016-10-03] MEDS: ACCU-CHEK XX SCH (02:00)
[2016-10-03 02:20] VITALS: BP 168/77; RESP 20
[2016-10-03] MEDS: CEFAZOLIN 1 GM/50 ML (PMX) 50 ML IVPB SCH ×3 (02:58→17:54)
[2016-10-03] MEDS: morphine 4 MG/ML VIAL IV PRN ×4 (03:01→20:31)
[2016-10-03] MEDS: POTASSIUM CHLORIDE 20 MEQ in LACTATED RINGER'S 1,000 ML IV SCH ×2 (05:13→06:55)
[2016-10-03 05:49] LABS: BASOPHILS % 0.2 % (0.0-2.0); EOSINOPHILS % 0.4 % (0.0-7.0); HEMATOCRIT 40.9 % (37.0-47.0); HEMOGLOBIN 13.4 g/dl (12.0-16.0); LYMPHOCYTES # 1.6 10^3/ul (0.8-2.9); MEAN CORPUSCULAR HEMOGLOBIN 29.8 pg (29.0-33.0); MEAN CORPUSCULAR HGB CONC 32.8 g/dl (32.0-37.0); MEAN CORPUSCULAR VOLUME 90.9 fl (82.0-101.0); MONOCYTE # 0.8 10^3/ul (0.3-0.9); MONOCYTES % 8.2 % (0.0-11.0); NEUTROPHILS % 74.8 % (39.0-77.0); PLATELET COUNT 101 10^3/UL (140-415); RED CELL DISTRIBUTION WIDTH 14.3 % (11.5-14.5); WHITE BLOOD COUNT 9.9 10^3/ul (4.8-10.8)
[2016-10-03] MEDS: HYDROCODONE/APAP (7.5/325) TAB PO PRN (05:58)
[2016-10-03] MEDS: LEVOTHYROXINE 137 MCG TAB PO SCH (05:58)
[2016-10-03 06:03] VITALS: BP 133/71; PULSE 77
[2016-10-03 06:14] LABS: CALCIUM 8.9 mg/dl (8.4-10.2); CREATININE 0.6 mg/dl (0.44-1.00); POTASSIUM 3.5 mmol/L (3.5-5.1)
[2016-10-03] MEDS: INSULIN ASPART [NOVOLOG] 3 ML PEN SC SCH ×4 (07:50→20:42)
[2016-10-03 07:54] VITALS: BP 129/60; RESP 18
[2016-10-03] MEDS: AMLODIPINE 5 MG TAB PO SCH (08:26)
[2016-10-03] MEDS: EMPAGLIFLOZIN 10 MG TABLET PO SCH (08:26)
--- NOTE | 2016-10-03 13:42 | PN ---
Date/Time of Note Date/Time of Note DATE: 10/03/16 TIME: 13:37 Assessment/Plan VTE Prophylaxis VTE Prophylaxis Intervention: SCD's Lines/Catheters IV Catheter Type (from Nrs): Peripheral IV Urinary Cath still in place: No Assessment/Plan Chief Complaint/Hosp Course Patient's complains of significant amount of pain, morphine was increased to 4 mg every 3 hours, patient was encouraged to take [place]. Problems: Assessment/Plan - Left adnexal pelvic mass, status post excision, left ureteral dissection, bilateral salpingo-oophorectomy. Continue to follow up surgical recommendation. Continue Zofran p.r.n. for nausea and morphine p.r.n. for pain. Patient is continued on antibiotics, cefazolin and metronidazole. - Hypertension. Continue Norvasc. - Diabetes mellitus type 2. Continue Janumet and glipizide. Monitor blood sugar q.a.c. and at bedtime with Novalog mild sliding scale coverage. - Hypothyroidism. Continue Synthroid. Further recommendations based on clinical course. Plan of care discussed with Dr. Tabor. Exam/Review of Systems Vital Signs Vitals Vital Signs Date Time Temp Pulse Resp B/P Pulse Ox O2 Delivery O2 Flow Rate FiO2 10/03/16 07:54 98.7 86 18 129/60 97 10/03/16 01:29 2.0 10/02/16 20:44 Nasal Cannula Intake and Output 10/02/16 10/02/16 10/03/16 15:00 23:00 07:00 Intake Total 960 ml 770 ml 1420 ml Output Total 500 ml Balance 960 ml 270 ml 1420 ml Exam Constitutional: alert, oriented Head: normocephalic Neck: supple Respiratory: normal air movement Cardiovascular: nl pulses Gastrointestinal: non-tender, soft, tender Genitourinary - Female: other (Lower abdominal tenderness) Neurological: nl mental status Results Result Diagram: 10/03/16 0505 10/03/16 0505 Results 24 hrs Laboratory Tests Test 10/02/16 18:10 10/02/16 20:39 10/03/16 05:05 10/03/16 08:30 Bedside Glucose 115 116 121 White Blood Count 9.9 Red Blood Count 4.50 Hemoglobin 13.4 Hematocrit 40.9 Mean Corpuscular Volume 90.9 Mean Corpuscular Hemoglobin 29.8 Mean Corpuscular Hemoglobin Concent 32.8 Red Cell Distribution Width 14.3 Platelet Count 101 L Mean Platelet Volume 13.0 H Neutrophils % 74.8 Lymphocytes % 16.0 Monocytes % 8.2 Eosinophils % 0.4 Basophils % 0.2 Nucleated Red Blood Cells % 0.0 Neutrophils # (Manual) 7 Lymphocytes # 1.6 Monocytes # 0.8 Eosinophils # 0.0 Basophils # 0.0 Nucleated Red Blood Cells # 0.0 Sodium Level 140 Potassium Level 3.5 Chloride Level 94 L Carbon Dioxide Level 31 Anion Gap 19 #H Blood Urea Nitrogen 10 Creatinine 0.60 Glucose Level 125 Calcium Level 8.9 Test 10/03/16 12:46 Bedside Glucose 107 Medications Medications Current Medications Cefazolin Sodium (Ancef 1 Gm/50 ml (Pmx)) 50 ml @ 100 mls/hr Q8H IVPB Last administered on 10/03/16 08:25; Admin Dose 100 MLS/HR; Start 10/01/16 at 09:00 Acetaminophen/ Hydrocodone Bitart ([place] (5/325)) 1 tab Q6H PRN PO PAIN LEVEL 6 -10 Last administered on 10/02/16 12:19; Admin Dose 1 TAB; Start 10/01/16 at 08 :30 Diphenhydramine HCl (Benadryl) 25 mg Q4H PRN IV PRURITUS; Start 10/01/16 at 10: 00 Nalbuphine HCl (Nubain) 10 mg Q4H PRN IV PRURITUS; Start 10/01/16 at 10:00 Ondansetron HCl (Zofran Inj) 4 mg Q6H PRN IV NAUSEA AND/OR VOMITING Last administered on 10/03/16 05:37; Admin Dose 4 MG; Start 10/01/16 at 10:00 Naloxone HCl (Narcan) 0.2 mg Q2M PRN IV FOR RESP RATE 8 OR LESS; Start at 10:00 Amlodipine Besylate (Norvasc) 5 mg DAILY PO Last administered on 10/03/16 08: 26; Admin Dose 5 MG; Start 10/02/16 at 09:00 Empaglifozin (Jardiance) 10 mg AM PO Last administered on 10/03/16 08:26; Admin Dose 10 MG; Start 10/02/16 at 09:00 Levothyroxine Sodium (Synthroid) 137 mcg DAILY@06 PO Last administered on 05:58; Admin Dose 137 MCG; Start 10/02/16 at 06:00 Diagnostic Test (Pha) (Accu-Chek) 1 ea 02 XX Last administered on 10/02/16 02: 00; Admin Dose 1 EA; Start 10/02/16 at 02:00 Hydralazine HCl (Apresoline) 10 mg Q6H PRN IV SBP>170 Last administered on 10/02 20:46; Admin Dose 10 MG; Start 10/01/16 at 12:30 Miscellaneous Information 1 ea NOTE XX ; Start 10/01/16 at 12:30 Glucose (Glutose) 15 gm Q15M PRN PO DECREASED GLUCOSE; Start 10/01/16 at 12:30 Glucose (Glutose) 22.5 gm Q15M PRN PO DECREASED GLUCOSE; Start 10/01/16 at 12: 30 Dextrose (D50w Syringe) 25 ml Q15M PRN IV DECREASED GLUCOSE; Start 10/01/16 at 12:30 Dextrose (D50w Syringe) 50 ml Q15M PRN IV DECREASED GLUCOSE; Start 10/01/16 at 12:30 Glucagon (Glucagen) 1 mg Q15M PRN IM DECREASED GLUCOSE; Start 10/01/16 at 12:30 Glucose 15 gm 15 gm Q15M PRN BUCCAL DECREASED GLUCOSE; Start 10/01/16 at 12:30 Potassium Chloride/Lactated Ringer's (KCl/Lr) 1,010 ml @ 60 mls/hr [id number] IV Last administered on 10/03/16 06:55; Admin Dose 60 MLS/HR; Start 10/01/16 at 15 :00 Acetaminophen/ Hydrocodone Bitart ([place] (7.5-325)) 1 tab Q6H PRN PO PAIN LEVEL 8-10 Last administered on 10/03/16 05:58; Admin Dose 1 TAB; Start at 13:30 Morphine Sulfate (morphine) 4 mg Q3H PRN IV PAIN LEVEL 6-10 Last administered on 10/03/16 11:53; Admin Dose 4 MG; Start 10/02/16 at 18:30 Zolpidem Tartrate (Ambien) 10 mg HS PO Last administered on 10/02/16 21:48; Admin Dose 10 MG; Start 10/02/16 at 21:00 Al Hydrox/Mg Hydrox/Simethicone (Mag-Al Plus) 30 ml Q4H PRN PO GASTROINTESTINAL UPSET Last administered on 10/02/16t 22:04; Admin Dose 30 ML; Start 10/02/16 at 20:00 GEORGE MACIEL Oct 03, 2016 13:42
--- NOTE | 2016-10-03 14:52 | PN ---
Date/Time of Note Date/Time of Note DATE: 10/03/16 TIME: 14:48 Assessment/Plan VTE Prophylaxis VTE Prophylaxis Intervention: SCD's Lines/Catheters IV C[facility] Type (from [facility] Peripheral IV Urinary Cath still in place: No Assessment/Plan Chief Complaint/Hosp Course pelvic mass Problems: Assessment/Plan A- improved P- possibly discharge tomorrow Subjective 24 Hr Interval Summary Free Text/Dictation Minimal flatus, ambulated slightly. Main issue is LLQ abdominal wall due to mass excised. Exam/Review of Systems Vital Signs Vitals Vital Signs Date Time Temp Pulse Resp B/P Pulse Ox O2 Delivery O2 Flow Rate FiO2 10/03/16 07:54 98.7 86 18 129/60 97 10/03/16 01:29 2.0 10/02/16 20:44 Nasal Cannula Intake and Output 10/02/16 10/02/16 10/03/16 15:00 23:00 07:00 Intake Total 960 ml 770 ml 1420 ml Output Total 500 ml Balance 960 ml 270 ml 1420 ml Exam Resp- clear CVS- NSR Abd- soft NT clean other than superficial LLQ due to site of mass excised Ext- nt no edema Results Result Diagram: 10/03/16 0505 10/03/16 0505 Results 24 hrs Laboratory Tests Test 10/02/16 18:10 10/02/16 20:39 10/03/16 05:05 10/03/16 08:30 Bedside Glucose 115 116 121 White Blood Count 9.9 Red Blood Count 4.50 Hemoglobin 13.4 Hematocrit 40.9 Mean Corpuscular Volume 90.9 Mean Corpuscular Hemoglobin 29.8 Mean Corpuscular Hemoglobin Concent 32.8 Red Cell Distribution Width 14.3 Platelet Count 101 L Mean Platelet Volume 13.0 H Neutrophils % 74.8 Lymphocytes % 16.0 Monocytes % 8.2 Eosinophils % 0.4 Basophils % 0.2 Nucleated Red Blood Cells % 0.0 Neutrophils # (Manual) 7 Lymphocytes # 1.6 Monocytes # 0.8 Eosinophils # 0.0 Basophils # 0.0 Nucleated Red Blood Cells # 0.0 Sodium Level 140 Potassium Level 3.5 Chloride Level 94 L Carbon Dioxide Level 31 Anion Gap 19 #H Blood Urea Nitrogen 10 Creatinine 0.60 Glucose Level 125 Calcium Level 8.9 Test 10/03/16 12:46 Bedside Glucose 107 Medications Medications Current Medications Cefazolin Sodium (Ancef 1 Gm/50 ml (Pmx)) 50 ml @ 100 mls/hr Q8H IVPB Last administered on 10/03/16 08:25; Admin Dose 100 MLS/HR; Start 10/01/16 at 09:00 Acetaminophen/ Hydrocodone Bitart ([place] (5/325)) 1 tab Q6H PRN PO PAIN LEVEL 6 -10 Last administered on 10/02/16 12:19; Admin Dose 1 TAB; Start 10/01/16 at 08 :30 Diphenhydramine HCl (Benadryl) 25 mg Q4H PRN IV PRURITUS; Start 10/01/16 at 10: 00 Nalbuphine HCl (Nubain) 10 mg Q4H PRN IV PRURITUS; Start 10/01/16 at 10:00 Ondansetron HCl (Zofran Inj) 4 mg Q6H PRN IV NAUSEA AND/OR VOMITING Last administered on 10/03/16 05:37; Admin Dose 4 MG; Start 10/01/16 at 10:00 Naloxone HCl (Narcan) 0.2 mg Q2M PRN IV FOR RESP RATE 8 OR LESS; Start at 10:00 Amlodipine Besylate (Norvasc) 5 mg DAILY PO Last administered on 10/03/16 08: 26; Admin Dose 5 MG; Start 10/02/16 at 09:00 Empaglifozin (Jardiance) 10 mg AM PO Last administered on 10/03/16 08:26; Admin Dose 10 MG; Start 10/02/16 at 09:00 Levothyroxine Sodium (Synthroid) 137 mcg DAILY@06 PO Last administered on 05:58; Admin Dose 137 MCG; Start 10/02/16 at 06:00 Diagnostic Test (Pha) (Accu-Chek) 1 ea 02 XX Last administered on 10/02/16 02: 00; Admin Dose 1 EA; Start 10/02/16 at 02:00 Hydralazine HCl (Apresoline) 10 mg Q6H PRN IV SBP>170 Last administered on 10/02 20:46; Admin Dose 10 MG; Start 10/01/16 at 12:30 Miscellaneous Information 1 ea NOTE XX ; Start 10/01/16 at 12:30 Glucose (Glutose) 15 gm Q15M PRN PO DECREASED GLUCOSE; Start 10/01/16 at 12:30 Glucose (Glutose) 22.5 gm Q15M PRN PO DECREASED GLUCOSE; Start 10/01/16 at 12: 30 Dextrose (D50w Syringe) 25 ml Q15M PRN IV DECREASED GLUCOSE; Start 10/01/16 at 12:30 Dextrose (D50w Syringe) 50 ml Q15M PRN IV DECREASED GLUCOSE; Start 10/01/16 at 12:30 Glucagon (Glucagen) 1 mg Q15M PRN IM DECREASED GLUCOSE; Start 10/01/16 at 12:30 Glucose 15 gm 15 gm Q15M PRN BUCCAL DECREASED GLUCOSE; Start 10/01/16 at 12:30 Potassium Chloride/Lactated Ringer's (KCl/Lr) 1,010 ml @ 60 mls/hr [id number] IV Last administered on 10/03/16 06:55; Admin Dose 60 MLS/HR; Start 10/01/16 at 15 :00 Morphine Sulfate (morphine) 4 mg Q3H PRN IV PAIN LEVEL 6-10 Last administered on 10/03/16 11:53; Admin Dose 4 MG; Start 10/02/16 at 18:30 Zolpidem Tartrate (Ambien) 10 mg HS PO Last administered on 10/02/16 21:48; Admin Dose 10 MG; Start 10/02/16 at 21:00 Al Hydrox/Mg Hydrox/Simethicone (Mag-Al Plus) 30 ml Q4H PRN PO GASTROINTESTINAL UPSET Last administered on 10/02/16 22:04; Admin Dose 30 ML; Start 10/02/16 at 20:00 Acetaminophen/ Hydrocodone Bitart ([place] (5/325)) 2 tab Q4H PRN PO PAIN LEVEL 6 -10; Start 10/03/16 at 14:00 MIRTA GONSALES MD Oct 03, 2016 14:51
[2016-10-03] MEDS: HYDROCODONE/APAP (5/325) TAB PO PRN ×2 (15:00→19:06)
--- NOTE | 2016-10-03 15:31 | OPPN ---
Date/Time of Note Date/Time of Note DATE: 10/03/16 TIME: 15:31 Post-Anesthesia Notes Post-Anesthesia Note Last documented vital signs Vital Signs Date Time Temp Pulse Resp B/P Pulse Ox O2 Delivery O2 Flow Rate FiO2 10/03/16 07:54 98.7 86 18 129/60 97 10/03/16 01:29 2.0 10/02/16 20:44 Nasal Cannula Activity: WNL Respiratory function: WNL Cardiovascular function: WNL Mental status: Baseline Pain reasonably controlled: Yes Hydration appropriate: Yes Nausea/Vomiting absent: Yes GEOFF TOURE MD Oct 03, 2016 15:31
[2016-10-03] MEDS: metFORMIN (XR) 500 MG TAB PO SCH (17:54)
[2016-10-03] MEDS: LINAGLIPTIN 5 MG TABLET PO SCH (17:54)
[2016-10-03] MEDS: AL HYDROX/MG HYDROX/SIMETH 30 ML CUP PO PRN (19:06)
[2016-10-03 20:38] VITALS: BP 173/78; PULSE 72; RESP 18
[2016-10-03] MEDS: hydrALAzine 20 MG INJ IV PRN (20:38)
[2016-10-03] MEDS: ZOLPIDEM 5 MG TAB PO SCH (23:13)
[2016-10-04] MEDS: CEFAZOLIN 1 GM/50 ML (PMX) 50 ML IVPB SCH ×2 (01:26→08:46)
[2016-10-04 02:00] VITALS: BP 137/62; RESP 18
[2016-10-04] MEDS: ACCU-CHEK XX SCH (02:00)
[2016-10-04 05:12] LABS: BASOPHILS % 0.4 % (0.0-2.0); EOSINOPHILS # 0.2 10^3/ul (0.0-0.5); EOSINOPHILS % 2.4 % (0.0-7.0); HEMATOCRIT 40.5 % (37.0-47.0); HEMOGLOBIN 13.5 g/dl (12.0-16.0); LYMPHOCYTES % 26.8 % (15.0-51.0); MEAN CORPUSCULAR HEMOGLOBIN 30.8 pg (29.0-33.0); MEAN CORPUSCULAR HGB CONC 33.3 g/dl (32.0-37.0); MEAN CORPUSCULAR VOLUME 92.5 fl (82.0-101.0); MEAN PLATELET VOLUME 12.3 fl (7.4-10.4); MONOCYTE # 0.6 10^3/ul (0.3-0.9); MONOCYTES % 8.6 % (0.0-11.0); NEUTROPHILS % 61.7 % (39.0-77.0); PLATELET COUNT 106 10^3/UL (140-415); RED BLOOD COUNT 4.38 10^6/ul (4.20-5.40); RED CELL DISTRIBUTION WIDTH 13.7 % (11.5-14.5); WHITE BLOOD COUNT 7.4 10^3/ul (4.8-10.8)
[2016-10-04 05:43] LABS: CREATININE 0.58 mg/dl (0.44-1.00); POTASSIUM 3.8 mmol/L (3.5-5.1)
[2016-10-04] MEDS: HYDROCODONE/APAP (5/325) TAB PO PRN ×2 (06:27→10:59)
[2016-10-04] MEDS: POTASSIUM CHLORIDE 20 MEQ in LACTATED RINGER'S 1,000 ML IV SCH (06:27)
[2016-10-04] MEDS: LEVOTHYROXINE 137 MCG TAB PO SCH (06:27)
[2016-10-04 07:00] VITALS: BP 136/61; RESP 20
[2016-10-04] MEDS: INSULIN ASPART [NOVOLOG] 3 ML PEN SC SCH ×2 (07:50→12:40)
[2016-10-04] MEDS: EMPAGLIFLOZIN 10 MG TABLET PO SCH (08:47)
[2016-10-04] MEDS: AMLODIPINE 5 MG TAB PO SCH (08:48)
--- NOTE | 2016-10-04 09:57 | PN ---
Date/Time of Note Date/Time of Note DATE: 10/04/16 TIME: 09:57 Assessment/Plan VTE Prophylaxis VTE Prophylaxis Intervention: other Lines/Catheters IV Catheter Type (from Nrs): Peripheral IV Urinary Cath still in place: No Assessment/Plan Chief Complaint/Hosp Course - Left adnexal pelvic mass, status post excision, left ureteral dissection, bilateral salpingo-oophorectomy. Continue to follow up surgical recommendation. Continue Zofran p.r.n. for nausea and morphine p.r.n. for pain. Patient is continued on antibiotics, cefazolin and metronidazole. - Hypertension. Continue Norvasc. - Diabetes mellitus type 2. Continue Janumet and glipizide. Monitor blood sugar q.a.c. and at bedtime with Novalog mild sliding scale coverage. - Hypothyroidism. Continue Synthroid. Problems: Subjective 24 Hr Interval Summary Free Text/Dictation Patient doing well Exam/Review of Systems Vital Signs Vitals Vital Signs Date Time Temp Pulse Resp B/P Pulse Ox O2 Delivery O2 Flow Rate FiO2 10/04/16 07:00 98.3 86 20 136/61 98 10/03/16 20:38 Nasal Cannula 10/03/16 01:29 2.0 Intake and Output 10/03/16 10/03/16 10/04/16 14:59 22:59 06:59 Intake Total 50 ml 1030 ml 650 ml Balance 50 ml 1030 ml 650 ml Exam Constitutional: well developed Head: atraumatic, normocephalic Neck: supple Respiratory: clear to auscultation Cardiovascular: regular rate and rhythm Gastrointestinal: non-tender, soft Extremities: normal pulses Results Result Diagram: 10/04/16 0441 10/04/16 044 Results 24 hrs Laboratory Tests Test 10/03/16 12:46 10/03/16 17:40 10/03/16 20:41 10/04/16 04:41 Bedside Glucose 107 109 124 White Blood Count 7.4 # Red Blood Count 4.38 Hemoglobin 13.5 Hematocrit 40.5 Mean Corpuscular Volume 92.5 Mean Corpuscular Hemoglobin 30.8 Mean Corpuscular Hemoglobin Concent 33.3 Red Cell Distribution Width 13.7 Platelet Count 106 L Mean Platelet Volume 12.3 H Neutrophils % 61.7 Lymphocytes % 26.8 Monocytes % 8.6 Eosinophils % 2.4 Basophils % 0.4 Nucleated Red Blood Cells % 0.0 Neutrophils # (Manual) 5 Lymphocytes # 2.0 Monocytes # 0.6 Eosinophils # 0.2 Basophils # 0.0 Nucleated Red Blood Cells # 0.0 Sodium Level 138 Potassium Level 3.8 Chloride Level 93 L Carbon Dioxide Level 30 Anion Gap 19 H Blood Urea Nitrogen 11 Creatinine 0.58 Glucose Level 96 Calcium Level 9.0 Test 10/04/16 08:29 Bedside Glucose 77 Medications Medications Current Medications Cefazolin Sodium (Ancef 1 Gm/50 ml (Pmx)) 50 ml @ 100 mls/hr Q8H IVPB Last administered on 10/04/16 08:46; Admin Dose 100 MLS/HR; Start 10/01/16 at 09:00 Acetaminophen/ Hydrocodone Bitart ([place]rian (5/325)) 1 tab Q6H PRN PO PAIN LEVEL 6 -10 Last administered on 10/02/16 12:19; Admin Dose 1 TAB; Start 10/01/16 at 08 :30 Diphenhydramine HCl (Benadryl) 25 mg Q4H PRN IV PRURITUS; Start 10/01/16 at 10: 00 Nalbuphine HCl (Nubain) 10 mg Q4H PRN IV PRURITUS; Start 10/01/16 at 10:00 Ondansetron HCl (Zofran Inj) 4 mg Q6H PRN IV NAUSEA AND/OR VOMITING Last administered on 10/03/16 05:37; Admin Dose 4 MG; Start 10/01/16 at 10:00 Naloxone HCl (Narcan) 0.2 mg Q2M PRN IV FOR RESP RATE 8 OR LESS; Start at 10:00 Amlodipine Besylate (Norvasc) 5 mg DAILY PO Last administered on 10/04/16 08: 48; Admin Dose 5 MG; Start 10/02/16 at 09:00 Empaglifozin (Jardiance) 10 mg AM PO Last administered on 10/04/16 08:47; Admin Dose 10 MG; Start 10/02/16 at 09:00 Levothyroxine Sodium (Synthroid) 137 mcg DAILY@06 PO Last administered on 06:27; Admin Dose 137 MCG; Start 10/02/16 at 06:00 Diagnostic Test (Pha) (Accu-Chek) 1 ea 02 XX Last administered on 10/02/16 02: 00; Admin Dose 1 EA; Start 10/02/16 at 02:00 Hydralazine HCl (Apresoline) 10 mg Q6H PRN IV SBP>170 Last administered on 10/03 20:38; Admin Dose 10 MG; Start 10/01/16 at 12:30 Miscellaneous Information 1 ea NOTE XX ; Start 10/01/16 at 12:30 Glucose (Glutose) 15 gm Q15M PRN PO DECREASED GLUCOSE; Start 10/01/16 at 12:30 Glucose (Glutose) 22.5 gm Q15M PRN PO DECREASED GLUCOSE; Start 10/01/16 at 12: 30 Dextrose (D50w Syringe) 25 ml Q15M PRN IV DECREASED GLUCOSE; Start 10/01/16 at 12:30 Dextrose (D50w Syringe) 50 ml Q15M PRN IV DECREASED GLUCOSE; Start 10/01/16 at 12:30 Glucagon (Glucagen) 1 mg Q15M PRN IM DECREASED GLUCOSE; Start 10/01/16 at 12:30 Glucose 15 gm 15 gm Q15M PRN BUCCAL DECREASED GLUCOSE; Start 10/01/16 at 12:30 Potassium Chloride/Lactated Ringer's (KCl/Lr) 1,010 ml @ 40 mls/hr Q24H IV Last administered on 10/04/16 06:27; Admin Dose 40 MLS/HR; Start 10/01/16 at 15 :00 Morphine Sulfate (morphine) 4 mg Q3H PRN IV PAIN LEVEL 6-10 Last administered on 10/03/16 20:31; Admin Dose 4 MG; Start 10/02/16 at 18:30 Zolpidem Tartrate (Ambien) 10 mg HS PO Last administered on 10/03/16 23:13; Admin Dose 10 MG; Start 10/02/16 at 21:00 Al Hydrox/Mg Hydrox/Simethicone (Mag-Al Plus) 30 ml Q4H PRN PO GASTROINTESTINAL UPSET Last administered on 10/03/16 19:06; Admin Dose 30 ML; Start 10/02/16 at 20:00 Acetaminophen/ Hydrocodone Bitart (Adrian (5/325)) 2 tab Q4H PRN PO PAIN LEVEL 6 -10 Last administered on 10/04/16 06:27; Admin Dose 2 TAB; Start 10/03/16 at 14 :00 JESSICA LINDA Oct 04, 2016 09:57
[2016-10-04 14:00] VITALS: BP 136/61; RESP 20
--- NOTE | 2016-10-04 15:16 | PN ---
Date/Time of Note Date/Time of Note DATE: 10/04/16 TIME: 15:14 Assessment/Plan VTE Prophylaxis VTE Prophylaxis Intervention: SCD's Lines/Catheters IV Catheter Type (from Nrsg): Peripheral IV Urinary Cath still in place: No Assessment/Plan Chief Complaint/Hosp Course pelvic mass Problems: Assessment/Plan A- doing well P- d/c home and RTO 7-10 d; discussed in detail. Subjective 24 Hr Interval Summary Free Text/Dictation Feels better and indicates NO pain. + BM and OOB. Exam/Review of Systems Vital Signs Vitals Vital Signs Date Time Temp Pulse Resp B/P Pulse Ox O2 Delivery O2 Flow Rate FiO2 10/04/16 14:00 98.3 86 20 136/61 98 10/03/16 20:38 Nasal Cannula 10/03/16 01:29 2.0 Intake and Output 10/03/16 10/03/16 10/04/16 15:00 23:00 07:00 Intake Total 50 ml 1030 ml 650 ml Balance 50 ml 1030 ml 650 ml Exam Resp- clear CVS- NSR Abd- soft NT clean and LLQ NT Ext- nt no edema Results Result Diagram: 10/04/16 0441 10/04/16 0441 Results 24 hrs Laboratory Tests Test 10/03/16 17:40 10/03/16 20:41 10/04/16 04:41 10/04/16 08:29 Bedside Glucose 109 124 77 White Blood Count 7.4 # Red Blood Count 4.38 Hemoglobin 13.5 Hematocrit 40.5 Mean Corpuscular Volume 92.5 Mean Corpuscular Hemoglobin 30.8 Mean Corpuscular Hemoglobin Concent 33.3 Red Cell Distribution Width 13.7 Platelet Count 106 L Mean Platelet Volume 12.3 H Neutrophils % 61.7 Lymphocytes % 26.8 Monocytes % 8.6 Eosinophils % 2.4 Basophils % 0.4 Nucleated Red Blood Cells % 0.0 Neutrophils # (Manual) 5 Lymphocytes # 2.0 Monocytes # 0.6 Eosinophils # 0.2 Basophils # 0.0 Nucleated Red Blood Cells # 0.0 Sodium Level 138 Potassium Level 3.8 Chloride Level 93 L Carbon Dioxide Level 30 Anion Gap 19 H Blood Urea Nitrogen 11 Creatinine 0.58 Glucose Level 96 Calcium Level 9.0 Test 10/04/16 12:31 Bedside Glucose 103 Medications Medications Current Medications Cefazolin Sodium (Ancef 1 Gm/50 ml (Pmx)) 50 ml @ 100 mls/hr Q8H IVPB Last administered on 10/04/16 08:46; Admin Dose 100 MLS/HR; Start 10/01/16 at 09:00 Acetaminophen/ Hydrocodone Bitart ([place] (5/325)) 1 tab Q6H PRN PO PAIN LEVEL 6 -10 Last administered on 10/02/16 12:19; Admin Dose 1 TAB; Start 10/01/16 at 08 :30 Diphenhydramine HCl (Benadryl) 25 mg Q4H PRN IV PRURITUS; Start 10/01/16 at 10: 00 Nalbuphine HCl (Nubain) 10 mg Q4H PRN IV PRURITUS; Start 10/01/16 at 10:00 Ondansetron HCl (Zofran Inj) 4 mg Q6H PRN IV NAUSEA AND/OR VOMITING Last administered on 10/03/16 05:37; Admin Dose 4 MG; Start 10/01/16 at 10:00 Naloxone HCl (Narcan) 0.2 mg Q2M PRN IV FOR RESP RATE 8 OR LESS; Start at 10:00 Amlodipine Besylate (Norvasc) 5 mg DAILY PO Last administered on 10/04/16 08: 48; Admin Dose 5 MG; Start 10/02/16 at 09:00 Empaglifozin (Jardiance) 10 mg AM PO Last administered on 10/04/16 08:47; Admin Dose 10 MG; Start 10/02/16 at 09:00 Levothyroxine Sodium (Synthroid) 137 mcg DAILY@06 PO Last administered on 06:27; Admin Dose 137 MCG; Start 10/02/16 at 06:00 Diagnostic Test (Pha) (Accu-Chek) 1 ea 02 XX Last administered on 10/02/16 02: 00; Admin Dose 1 EA; Start 10/02/16 at 02:00 Hydralazine HCl (Apresoline) 10 mg Q6H PRN IV SBP>170 Last administered on 10/03 20:38; Admin Dose 10 MG; Start 10/01/16 at 12:30 Miscellaneous Information 1 ea NOTE XX ; Start 10/01/16 at 12:30 Glucose (Glutose) 15 gm Q15M PRN PO DECREASED GLUCOSE; Start 10/01/16 at 12:30 Glucose (Glutose) 22.5 gm Q15M PRN PO DECREASED GLUCOSE; Start 10/01/16 at 12: 30 Dextrose (D50w Syringe) 25 ml Q15M PRN IV DECREASED GLUCOSE; Start 10/01/16 at 12:30 Dextrose (D50w Syringe) 50 ml Q15M PRN IV DECREASED GLUCOSE; Start 10/01/16 at 12:30 Glucagon (Glucagen) 1 mg Q15M PRN IM DECREASED GLUCOSE; Start 10/01/16 at 12:30 Glucose 15 gm 15 gm Q15M PRN BUCCAL DECREASED GLUCOSE; Start 10/01/16 at 12:30 Potassium Chloride/Lactated Ringer's (KCl/Lr) 1,010 ml @ 40 mls/hr Q24H IV Last administered on 10/04/16 06:27; Admin Dose 40 MLS/HR; Start 10/01/16 at 15 :00 Morphine Sulfate (morphine) 4 mg Q3H PRN IV PAIN LEVEL 6-10 Last administered on 10/03/16 20:31; Admin Dose 4 MG; Start 10/02/16 at 18:30 Zolpidem Tartrate (Ambien) 10 mg HS PO Last administered on 10/03/16 23:13; Admin Dose 10 MG; Start 10/02/16 at 21:00 Al Hydrox/Mg Hydrox/Simethicone (Mag-Al Plus) 30 ml Q4H PRN PO GASTROINTESTINAL UPSET Last administered on 10/03/16 19:06; Admin Dose 30 ML; Start 10/02/16 at 20:00 Acetaminophen/ Hydrocodone Bitart ([place] (5/325)) 2 tab Q4H PRN PO PAIN LEVEL 6 -10 Last administered on 10/04/16 10:59; Admin Dose 2 TAB; Start 10/03/16 at 14 :00 MIRTA GONSALES MD Oct 04, 2016 15:16
== END 2016-10-04 16:10 | disposition home or self-care (01) | DRG 358 ==
LOC: REC 05:19 → INTOOBSV 05:19 → MS1 11:49 → OBSVTOIN 10-03 15:25
PROC: 0TS84ZZ Reposition Bilateral Ureters, Percutaneous Endoscopic Approach (ICD-10-PCS; 2016-10-01)
PROC: 0UT70ZZ Resection of Bilateral Fallopian Tubes, Open Approach (ICD-10-PCS; 2016-10-01)
PROC: 0UT20ZZ Resection of Bilateral Ovaries, Open Approach (ICD-10-PCS; 2016-10-01)
PROC: 0WBH0ZZ Excision of Retroperitoneum, Open Approach (ICD-10-PCS; principal; 2016-10-01 07:30)
DX: R19.09 Other intra-abdominal and pelvic swelling, mass and lump (principal); E11.8 Type 2 diabetes mellitus with unspecified complications; I10 Essential (primary) hypertension; R97.0 Elevated carcinoembryonic antigen [CEA]; E03.9 Hypothyroidism, unspecified; R10.2 Pelvic and perineal pain; N13.5 Crossing vessel and stricture of ureter without hydronephrosis; N93.9 Abnormal uterine and vaginal bleeding, unspecified; N88.2 Stricture and stenosis of cervix uteri; Z53.31 Laparoscopic surgical procedure converted to open procedure
CPT/HCPCS: 80048; 80053; 82962; 85025; 85610; 86850; 86900; 86901; 86920; 87086; 88302; 99217; G0378; J0131; J0360; J0690; J1100; J1644; J1815; J1885; J2250; J2270; J2274; J2370; J2405; J2710; J2765; J3010; J3480; J7120; J7999

== ENCOUNTER 2017-02-16 02:32 | Emergency (ER) | END 2017-02-16 04:52 | disposition home or self-care (01) ==

== ENCOUNTER → 2018-05-17 | Outpatient (CLI) | payer MEDICARE, MEDICAID ==
[~2018-05-17] MED LIST changes: +ACET500C5 PO; -ACET500T98 PO; -ALBU18HF INHALATION; -ALBU8.5H3 INH; +ALBU8.5H8 INH; +AMLO-145 PO; -AMO500 PO; +ASPI-1046 PO; +AZIT250T PO; -AZIT250T94 PO; -BEN50 PO; -BENA40TA54 PO; -BENZ100C70 PO; -CAPT50TA3 PO; +CETI10CA PO; -CYCL-319 PO; -DOCU-144 PO; +EMPA10TA PO; -FAMO-18 PO; -FLUT9.9S NASAL; +GLIP10TA14 PO; +GUAI473L22 PO; -HYDR-3498 PO; -HYDR473S47 PO; +HYDROCODONE PO; +IBUP-1542 PO; -IBUP200C PO; +LEVO137T3 PO; -LORA-186 PO; -METF500T4 PO; -PRED20TA PO; +SITA1TBM7 PO; -UDROBDM PO
--- NOTE | 2018-05-17 10:33 | CONS ---
Assessment/Plan Assessment/Plan Hospital Course (Demo Recall) 63-year-old female with history of diabetes mellitus type 2 with end-stage osteoarthritis of the left knee affecting all 3 compartments most severely in the medial compartment. Reviewing her primary care physician's note her hemoglobin A1c has significantly increased over the past year. In June 2017 it was 8.4. In November 2017 it was 9.5. In April 20, 2018 it was 13.7. Her diabetes is clearly uncontrolled and is coming less controlled over the last year. This is concerning from both a medical perspective as well as potential candidate for surgery. She has end-stage arthritis of her left knee and she is failing conservative management which includes injection therapy, activity modification, gait aids. Given that her diabetes is uncontrolled she is not a good surgical candidate as her perioperative risk is significantly increased especially in regards to infection. Her diabetes must be under better control with a hemoglobin A1c ideally below 7.0 but a downward trend and a hemoglobin A1c of 7.5 may also be acceptable to start planning for a total knee arthroplasty on the left knee. I encouraged the patient to return to her primary care physician to discuss a plan for better control. She previously has failed cortisone injection therefore recommending a hyaluronic acid injection for pain control while she works on getting her diabetes under better control. Plan: Left knee injection Orthovisc Ice Low impact activity See primary care physician for diabetes and other medical issues Follow-up in 1 week to continue Orthovisc injection Assessment/Plan (Daily) Left knee viscosupplementation injection procedure: Risks and benefits of viscosupplementation injection reviewed with patient. The risks include infection, failure, pain, swelling, nerve/tendon/ligament damage. The patient verbalized understanding and verbal consent was obtained prior to procedure. The left knee was prepped in a sterile fashion with alcohol and betadine the site of injection was confirmed. Lateral approach was used. The skin and c apsule was anesthetized with 3mL 1% lidocaine. The left knee was injected with Orthovisc. Injection flowed freely. Good hemostasis was achieved and no complications noted. The patient tolerated the procedure well. Limit activity and ice for 24-48 hours Consultation Date/Type/Reason Admit Date/Time Date of Consultation: May 17, 2018 Reason for Consultation Left knee pain Date/Time of Note DATE: 05/17/18 TIME: 09:54 Hx of Present Illness Is a 63-year-old female with a chief complaint of left knee pain. The pain began approximately years ago. The patients pain is in the medial aspect of the left knee. Pain is not radiating to the lower leg. The pain is rated as a 9/10. Patient does complaints of numbness or tingling from peripheral neuropathy secondary to diabetes. The pain is exacerbated by climbing stairs and ambulation. She has not been using any anti-inflammatory medication or ice. She has had previous cortisone injections. These have failed to help her. The last one was approximately 6 months ago. Patient states she has not started taking her insulin for diabetes even though her PCPs note sent to our office states she should be on insulin. Her last hemoglobin A1c taken April 20, 2018 is 13.7. Duration: Years Injury: No Walking tolerance: 1 block Limp: Yes Support: Cane and sometimes walker Swelling: Yes Crepitation: Yes Instability: No Stairs: Difficult Physical Therapy: No Injections: 2 steroid injections in the past. Last one 6 months ago with no help NSAIDs: No Prior surgery: No Back pain: Yes Hip pain: No Risk of AVN : No Patient denies fever, chills, shortness of breath, chest pain, nausea/vomiting, constipation, diarrhea Past Medical History Diabetes type 2insulin-dependent Peripheral neuropathy Hypertension Hypothyroidism Depression Osteoarthritis Home Meds Active Scripts Ibuprofen* (Motrin*) 600 Mg Tab, 600 MG PO Q6H PRN for PAIN AND OR ELEVATED TEMP, #30 TAB Prov:SINA WU NP 02/16/17 Acetaminophen* (Tylophen*) 500 Mg Capsule, 1 CAP PO Q6H PRN for PAIN AND OR ELEVATED TEMP, #20 CAP Prov:SINA WU NP 02/16/17 Azithromycin* (Zithromax*) 250 Mg Tablet, 250 MG PO .ZPACK DIRECTED, #6 TAB TAKE 500 MG (2 TABS) THE FIRST DAY THEN 250 MG (1 TAB) DAYS 2-5 Prov:SINA WU NP 02/16/17 Albuterol Sulfate* (Proair HFA*) 8.5 Gm Hfa.aer.ad, 2 PUFF INH Q4H PRN for WHEEZING AND SOB, #1 INHALER Prov:SINA WU NP 02/16/17 Cetirizine Hcl* (Zyrtec*) 10 Mg Capsule, 10 MG PO DAILY, #10 TAB.CHEW Prov:SINA WU [employer]OL AND DIE SUPERVISOR 02/16/17 Guaifenesin-Codeine Phosphate* (Guaifenesin* AC Cough Syrup) 473 Ml Liquid, 10 ML PO Q4H PRN for COUGH, #120 ML Prov:SINA WU [employer] DIE SUPERVISOR 02/16/17 Reported Medications [Hydrocodone] No Conflict Check, PO 10/01/16 Empagliflozin (Jardiance) 10 Mg Tablet, 10 MG PO AM, TAB 10/01/16 Aspirin* (Aspirin* (EC)) 81 Mg Tablet.dr, 81 MG PO DAILY, TAB 10/01/16 Levothyroxine Sodium* (Levothyroxine Sodium*) 137 Mcg Tablet, 137 MCG PO BEFORE BREAKFAST, #30 TAB 10/01/16 Glipizide* (Glipizide*) 10 Mg Tablet, 10 MG PO BID, TAB 10/01/16 Amlodipine Besylate* (Amlodipine Besylate*) 5 Mg Tablet, 5 MG PO DAILY, #30 TAB 10/01/16 Sitagliptin Phos-Metformin Hcl (Janumet XR) 100-1,000 Mg Tbmp.24hr, 1 TAB PO WITH DINNER, #30 TAB 10/01/16 Allergies: Coded Allergies: No Known Allergy (Unverified , 10/01/16) Past Surgical History Oophorectomy Family History Significant Family History: no pertinent family hx Social History Alcohol Use: none Smoking Status: Never smoker Drug Use: none Exam/Review of Systems Exam Vitals Weight: 149 pounds Height: 5 feet 2 inches Temperature: 90.6 Heart Rate: 67 Blood Pressure: 165/72 Respiratory Rate: 14 Exam General: Alert, oriented x3. No Acute Distress. Heart: Regular rate and rhythm. Lungs: No respiratory distress. No accessory muscle use. Musculoskeletal: Left Knee This is a well developed female who is alert, oriented times three and in no apparent distress. Skin is intact over the left knee as well as the lower extremity with no abrasions, lacerations, or ulcerations. Observation of the patient's gait reveals an antalgic gait with Varus thrust. Frontal plane alignment is varus. There is pain on palpation of medial greater than lateral joint line. The patient demonstrates grinding anteriorly with ROM. Range of motion: 5 extension to approximately 120 degrees of flexion. Collateral ligament testing reveals no instability with varus or valgus stress at 0 and 30 degrees of flexion. Negative Ervin's and negative posterior drawer. Neurovascularly intact with 5/5 EHL/tibialis anterior/gastroc. Sensation intact to light touch in a sural, saphenous, deep peroneal, superficial peroneal, medial and lateral plantar nerve distribution. Palpable, symmetric dorsalis pedis and posterior tibial pulses in both lower extremities. Hip examination normal. Imaging Imaging The patient received a standard set of films today that were personally reviewed. Imaging included a standing bilateral knee AP, PA flexion, merchant views and a dedicated lateral of the affected knee: There is varus alignment of the knee. There is complete loss of joint space medial compartment and moderate to severe loss in the lateral and patellofemoral compartment(s). There is osteophyte formation. There is subchondral sclerosis. There are subchondral cysts. Degenerative changes are most severe in the medial compartment(s) HAM LEISE MD May 17, 2018 10:04
--- NOTE | 2018-05-17 16:47 | RADRPT ---
PROCEDURE: XR right knee and XR left knee. CLINICAL INDICATION: Bilateral knee pain TECHNIQUE: 4 images of the left knee and 4 images of the right knee are available for review. COMPARISON: None available FINDINGS: Right knee: There is no acute fracture. Alignment is normal. There is severe medial femorotibial compartment osteoarthrosis and moderate lateral/patellofemoral co mpartment osteoarthrosis. The soft tissues are grossly unremarkable. Left knee: There is no acute fracture. Alignment is normal. There is severe medial femorotibial compartment osteoarthrosis and moderate lateral/patellofemoral co mpartment osteoarthrosis. There are ossified bodies along the lateral aspect of the joint measuring up to 10 mm. IMPRESSION: 1. No radiographic evidence of acute osseous abnormality. 2. Moderately advanced tricompartmental osteoarthrosis of both knees, severe and predominant in the m edial femorotibial compartments. RPTAT: UU .Ronan Gomez MD, MD Date Time Electronically viewed and signed by .Ronan Gomez MD, on 05/17/2018 16:47 .K/
== END | disposition home or self-care (01) ==
LOC: HKI 09:26
PROVIDERS: ATTEND Orthopaedic Surgery Adult Reconstructive Orthopaedic Surgery
DX: M25.562 Pain in left knee (principal); E11.9 Type 2 diabetes mellitus without complications; I10 Essential (primary) hypertension; G62.9 Polyneuropathy, unspecified; E03.9 Hypothyroidism, unspecified; F32.9 Major depressive disorder, single episode, unspecified; M19.90 Unspecified osteoarthritis, unspecified site; Z79.4 Long term (current) use of insulin
CPT/HCPCS: 20610; 73564; G0463; J7324

== ENCOUNTER → 2018-05-24 | Outpatient (CLI) | payer MEDICARE, MEDICAID ==
--- NOTE | 2018-05-24 11:40 | CONS ---
Consult Date/Type/Reason Admit Date/Time Initial Consult Date Date/Time of Note DATE: 05/24/18 TIME: 11:39 Subjective 63-year-old female following up today for her second left knee Orthovisc injection. Patient states no change in symptoms since last injection. Denies numbness and tingling. Denies fevers or chills. Objective Vitals Weight: 149 pounds Height: 5 feet 2 inches Temperature: 90.5 Heart Rate: 72 Blood Pressure: 134/60 Respiratory Rate: 14 Exam General: Awake, alert, in no acute distress, pleasant and cooperative Heart: regular rhythm Lungs: breathing comfortably, no tachypnea or dyspnea MUSCULOSKELETAL: Left lower extremity: Skin intact no erythema. Sensation intact to light touch in a sural, saphenous, deep peroneal, superficial peroneal, medial and lateral plantar nerve distribution. Motor is intact, patient able to dorsiflex and plantarflex ankle and extend and flex great toe. Dorsalis Pedis pulse +2, Brisk capillary refill. Compartments are soft. Calves non-tender to palpation bilaterally. Results/Medications Home Meds Active Scripts Ibuprofen* (Motrin*) 600 Mg Tab, 600 MG PO Q6H PRN for PAIN AND OR ELEVATED TEMP, #30 TAB Prov:SINA WU NP 02/16/17 Acetaminophen* (Tylophen*) 500 Mg Capsule, 1 CAP PO Q6H PRN for PAIN AND OR ELEVATED TEMP, #20 CAP Prov:SINA WU NP 02/16/17 Azithromycin* (Zithromax*) 250 Mg Tablet, 250 MG PO .JodiPACK DIRECTED, #6 TAB TAKE 500 MG (2 TABS) THE FIRST DAY THEN 250 MG (1 TAB) DAYS 2-5 Prov:SINA WU NP 02/16/17 Albuterol Sulfate* (Proair HFA*) 8.5 Gm Hfa.aer.ad, 2 PUFF INH Q4H PRN for WHEEZING AND SOB, #1 INHALER Prov:SINA WU NP 02/16/17 Cetirizine Hcl* (Zyrtec*) 10 Mg Capsule, 10 MG PO DAILY, #10 TAB.CHEW Prov:SINA WU NP 02/16/17 Guaifenesin-Codeine Phosphate* (Guaifenesin* AC Cough Syrup) 473 Ml Liquid, 10 ML PO Q4H PRN for COUGH, #120 ML Prov:SINA WUNickolas INSTRUMENT ASSEMBLY SUPERVISOR 02/16/17 Reported Medications [Hydrocodone] No Conflict Check, PO 10/01/16 Empagliflozin (Jardiance) 10 Mg Tablet, 10 MG PO AM, TAB 10/01/16 Aspirin* (Aspirin* (EC)) 81 Mg Tablet.dr, 81 MG PO DAILY, TAB 10/01/16 Levothyroxine Sodium* (Levothyroxine Sodium*) 137 Mcg Tablet, 137 MCG PO BEFORE BREAKFAST, #30 TAB 10/01/16 Glipizide* (Glipizide*) 10 Mg Tablet, 10 MG PO BID, TAB 10/01/16 Amlodipine Besylate* (Amlodipine Besylate*) 5 Mg Tablet, 5 MG PO DAILY, #30 TAB 10/01/16 Sitagliptin Phos-Metformin Hcl (Janumet XR) 100-1,000 Mg Tbmp.24hr, 1 TAB PO WITH DINNER, #30 TAB 10/01/16 Assessment/Plan Hospital Course (Demo Recall) 63-year-old female with osteoarthritis of the left knee. She has had one previous Orthovisc injection last week. She is here today for second injection. Plan: Orthovisc injection #2 left knee. Follow-up in 1 week for third injection. Assessment/Plan (Daily) Left knee viscosupplementation injection procedure: Risks and benefits of viscosupplementation injection reviewed with patient. The risks include infection, failure, pain, swelling, nerve/tendon/ligament damage. The patient verbalized understanding and verbal consent was obtained prior to procedure. The left knee was prepped in a sterile fashion with alcohol and betadine the site of injection was confirmed. Lateral approach was used. The skin and capsule was anesthetized with 3mL 1% lidocaine. The left knee was injected with Orthovisc. Injection flowed freely. Good hemostasis was achieved and no complications noted. The patient tolerated the procedure well. Limit activity and ice for 24-48 hours HAM ELISE MD May 24, 2018 11:40
== END | disposition home or self-care (01) ==
LOC: HKI 09:02
PROVIDERS: ATTEND Orthopaedic Surgery Adult Reconstructive Orthopaedic Surgery
DX: M17.12 Unilateral primary osteoarthritis, left knee (principal); Z79.82 Long term (current) use of aspirin; Z79.84 Long term (current) use of oral hypoglycemic drugs
CPT/HCPCS: 20610; G0463; J7324

== ENCOUNTER → 2018-05-31 | Outpatient (CLI) | payer MEDICARE, MEDICAID ==
--- NOTE | 2018-05-31 10:21 | CONS ---
Consult Date/Type/Reason Admit Date/Time Initial Consult Date Date/Time of Note DATE: 05/31/18 TIME: 10:18 Subjective 63-year-old female returns to clinic today for third Orthovisc injection to left knee. She has end-stage osteoarthritis however her hemoglobin A1c was last 13.7. At this time we are continue conservative treatment while her diabetes is better controlled. Patient states she may be feeling a little better from the first 2 injections. Objective Vitals Weight: 149 pounds Height: 5 foot 2 and Temperature: 98.1 Heart Rate: 72 Blood Pressure: 161/72 Respiratory Rate: 14 Exam General: Awake, alert, in no acute distress, pleasant and cooperative Heart: regular rhythm Lungs: breathing comfortably, no tachypnea or dyspnea MUSCULOSKELETAL: Left knee: Skin intact. No erythema. No effusion. Sensation intact to light touch in a sural, saphenous, deep peroneal, superficial peroneal, medial and lateral plantar nerve distribution. Motor is intact, patient able to dorsiflex and plantarflex ankle and extend and flex great toe. Dorsalis Pedis pulse +2, Brisk capillary refill. Compartments are soft. Calves non-tender to palpation bilaterally. Results/Medications Home Meds Active Scripts Ibuprofen* (Motrin*) 600 Mg Tab, 600 MG PO Q6H PRN for PAIN AND OR ELEVATED TEMP, #30 TAB Prov:SINA WU NP 02/16/17 Acetaminophen* (Tylophen*) 500 Mg Capsule, 1 CAP PO Q6H PRN for PAIN AND OR ELEVATED TEMP, #20 CAP Prov:SINA WU NP 02/16/17 Azithromycin* (Zithromax*) 250 Mg Tablet, 250 MG PO .ZPACK DIRECTED, #6 TAB TAKE 500 MG (2 TABS) THE FIRST DAY THEN 250 MG (1 TAB) DAYS 2-5 Prov:SINA WU NP 02/16/17 Albuterol Sulfate* (Proair HFA*) 8.5 Gm Hfa.aer.ad, 2 PUFF INH Q4H PRN for WHEEZING AND SOB, #1 INHALER Prov:SINA WU NP 02/16/17 Cetirizine Hcl* (Zyrtec*) 10 Mg Capsule, 10 MG PO DAILY, #10 TAB.CHEW Prov:SINA WU FRANCINE Blackmon [employer] 02/16/17 Guaifenesin-Codeine Phosphate* (Guaifenesin* AC Cough Syrup) 473 Ml Liquid, 10 ML PO Q4H PRN for COUGH, #120 ML Prov:SINA WU FRANCINE Parekh. [employer] 02/16/17 Reported Medications [Hydrocodone] No Conflict Check, PO 10/01/16 Empagliflozin (Jardiance) 10 Mg Tablet, 10 MG PO AM, TAB 10/01/16 Aspirin* (Aspirin* (EC)) 81 Mg Tablet.dr, 81 MG PO DAILY, TAB 10/01/16 Levothyroxine Sodium* (Levothyroxine Sodium*) 137 Mcg Tablet, 137 MCG PO BEFORE BREAKFAST, #30 TAB 10/01/16 Glipizide* (Glipizide*) 10 Mg Tablet, 10 MG PO BID, TAB 10/01/16 Amlodipine Besylate* (Amlodipine Besylate*) 5 Mg Tablet, 5 MG PO DAILY, #30 TAB 10/01/16 Sitagliptin Phos-Metformin Hcl (Janumet XR) 100-1,000 Mg Tbmp.24hr, 1 TAB PO WITH DINNER, #30 TAB 10/01/16 Assessment/Plan Hospital Course (Demo Recall) 63-year-old female with history of uncontrolled diabetes and end-stage arthritis of the left knee. Continue conservative management while the patient is medically optimized for future left total knee replacement. Plan: Third Orthovisc injection to left knee Low impact activity Ice Medical optimization Discussed NSAIDs with PCP secondary to significant hypertension Follow-up in 3 months with repeat hemoglobin A1c from primary care physician. Assessment/Plan (Daily) Left knee steroid injection procedure: Risks and benefits of steroid injection reviewed with patient. The risks include infection, failure, pain, swelling, nerve/tendon/ligament damage. The patient verbalized understanding and verbal consent was obtained prior to procedure. The left knee was prepped in a sterile fashion with alcohol and betadine the site of injection was confirmed. Lateral approach was used. The skin and capsule was anesthetized with 3mL 1% lidocaine. The left knee was injected with 2mL 1% lidocaine, 2mL 0.25% bupivacaine, 40mg Depo-Medrol. Injection flowed freely. Good hemostasis was achieved and no complications noted. The patient tolerated the procedure well. Limit activity and ice for 24-48 hours HAM ELISE MD May 31, 2018 10:21
== END | disposition home or self-care (01) ==
LOC: HKI 08:45
PROVIDERS: ATTEND Orthopaedic Surgery Adult Reconstructive Orthopaedic Surgery
DX: M17.12 Unilateral primary osteoarthritis, left knee (principal)
CPT/HCPCS: 20610; G0463; J7324